=== PATIENT | female | born 1995 | race Caucasian/White ===

== ENCOUNTER → 2021-08-20 08:58 | Outpatient (BNVA) | payer MEDICAID, SELFPAY | PROVIDERS: PCP Nurse Practitioner | DX: R35.0 Frequency of micturition (principal) | CPT/HCPCS: 51798; 81002; 99202 ==

== ENCOUNTER → 2021-10-19 10:48 | Outpatient (BNVA) | payer MEDICAID, SELFPAY | PROVIDERS: PCP Nurse Practitioner; Visit Provider Urology | DX: N30.10 Interstitial cystitis (chronic) without hematuria (principal); R10.2 Pelvic and perineal pain; R35.1 Nocturia | CPT/HCPCS: 52000; 99212 ==

== ENCOUNTER → 2022-01-28 10:08 | Outpatient (BNVA) | payer MEDICAID, SELFPAY | PROVIDERS: PCP Nurse Practitioner; Visit Provider Urology | DX: N30.10 Interstitial cystitis (chronic) without hematuria (principal) | CPT/HCPCS: 99212 ==

== ENCOUNTER 2022-02-15 08:00 | Outpatient (RCR) | payer MEDICAID, SELFPAY ==
--- NOTE | 2021-11-18 09:46 | MHC.PT.EP ---
[facility] [place] Office [place] Office [place] Office [address] Jaswant Penny [address] [phone] F: [phone] F: [phone] F: [phone] F: [phone] Physical Therapy Plan of Care Date of Evaluation: Date of Surgery: Diagnosis: IC Assessment: 26 y/o referred to PFPT for interstitial cystitis without hematuria. She reports urinary frequency sx for several years that has worsened over the past 2 years. States she needs to urinate every 60-90 minutes during the day and every 60-75 minutes to urinate at night. At night, she will only have a few drops of urine but has a strong urge and pain. She will have leakage of urine throughout the day (small amounts) and worsens with working out. She also reports pain with pap smears and use of speculum and discomfort with sexual insertion. She feels limited in taking car rides, airplane travel, sleeping, and daily life (always has to find a bathroom). Examination shows decreased L hip strength and ROM, decreased lumbar extension, poor breathing mechanics, increased urinary urgency with abdominal fascial caudal shear, and poor load transfer tests to the L. Pelvic floor examination not performed due to time constraints today but pt consented to assessment next visit. Educated pt on IC, bladder irritants, toileting mechanics, breathing, vagal tone downregulation, urge deferment. Frequency and Duration: The patient will be seen 1x/week for 6 weeks Short Term Goals: 4 weeks Pt to be able to demonstrate diaphragmatic breathing to improve pressure exchange and intra abdominal load management. Pt to be educated on bladder irritants in order to decrease UI triggers Pt to complete a voiding log in order to accurately assess her bladder habits [facility] Goals: 8 weeks Pt will report 50% reduction in night time voiding Pt to reduce # of episodes of UI during the day by 50% to help improve quality of life and reduce underwear changes. Pt to be independent with her final HEP for PFM in order to help maintain gains made in therapy. Pt will reports 50% decrease in pain with insertion such as pap smears or sexual activity Treatment Plan: Modalities to reduce pain, spasms and effusion. Manual therapy to restore motion and function. Therapeutic exercise to improve strength and flexibility. Neuromuscular re-education for posture and balance. Therapeutic activities to return to functional activities of daily living. Electronically signed by: Please sign and return to therapist. Thank you for your referral.
--- NOTE | 2022-02-15 08:59 | MHC.PT.DC ---
[facility] [place] Office [place] Office [place] Office [address] Jaswant Penny [address] [phone] F: [phone] F: [phone] F: [phone] F: [phone] Physical Therapy Discharge Report Diagnosis: IC Date of Surgery: Date of Evaluation: 11/18/21 Date of Discharge: 02/15/22 Treatments to Date: 8 Cancellations to Date: 1 No Shows to Date: 0 Discharge Status: Independent with HEP Recommend MD Follow-up Discharge Summary: At this time, she continues with significant urgency especially at night but minimal-no stream occurs. She is now trialing Toviaz and Amitriptyline, which she states does not help and she hates taking the medications. Per urologist recommendation, she will be having bladder hydrodistention but it is not scheduled yet. She has also been referred to a behavioral therapist in conjuction with the mental therapist she already has. We reviewed HEP stretches with modification for cobra (standing back bend over counter), open books, piiformis stretch modified, happy baby stretch 1min, standing PF stretch. Also reviewed how to do self MFR and skin rolling to abdomen. Discussed looking into The IC Solution Book as well to read more about IC triggers and flare-up plans. At this time, she is d/c to I stretching HEP and she will be undergoing further management with urology for significant urgency. Electronically signed by: Coby Ho PT Please sign and return to therapist. Thank you for your referral.
== END 2022-02-15 09:00 | disposition home or self-care (01) ==
LOC: HO.PT 08:00
PROVIDERS: PCP Nurse Practitioner; Visit Provider Urology
DX: N30.10 Interstitial cystitis (chronic) without hematuria (principal)
CPT/HCPCS: 97110; 97112; 97140; 97162

== ENCOUNTER → 2022-02-25 09:43 | Outpatient (BNVA) | payer MEDICAID, SELFPAY | PROVIDERS: PCP Nurse Practitioner; Visit Provider Nurse Practitioner Family | DX: N30.10 Interstitial cystitis (chronic) without hematuria (principal) | CPT/HCPCS: 99212 ==

== ENCOUNTER 2022-03-21 11:10 | Day surgery (SDC) | payer MEDICAID, SELFPAY ==
[2022-03-16 12:30] VITALS: BMI 34.9
[2022-03-21 12:05] LABS: Urine Pregnancy NEGATIVE (NEGATIVE)
[2022-03-21 12:06] LABS: UPreg QC Valid YES
[2022-03-21 12:24] VITALS: BP 130/76; PULSE 75; RESP 18; TEMP 36.8; O2SAT 100
[2022-03-21 12:26] VITALS: BMI 35.2
[2022-03-21] MEDS: Lactated Ringers 1,000 ML 80 ML IVCONT (12:27)
[2022-03-21] MEDS: Acetaminophen 325 MG TABLET 650 MG PO (14:19)
--- NOTE | 2022-03-21 14:22 | P.CONAN_ITS ---
HPI - Anesthesia Eval Consult details Narrative: cysto, hydroditension PMFSH Active Problems Active Problems: All Active Problems (Updated 03/16/22 @ 12:29 by Marcela Schmidt RN) Interstitial cystitis (Acute) Past Medical History Medical History (Updated 03/16/22 @ 12:29 by Marcela Schmidt RN) Interstitial cystitis Patient : No Family History Family history of problems with anesthesia: No Surgical History Surgical History (Updated 03/16/22 @ 12:29 by Marcela Schmidt RN) History of tonsillectomy Hx of endoscopy History of Problems with Anesthesia: No Social History Social History Are you a primary care coordination manager to a significant other at home: No Do you presently have visiting nurse or other home services: No Patient Tobacco Use Status: Never used Tobacco Use of substances other than those prescribed or required for medical reasons: Yes Substance Use Frequency: Occasionally Have you been hit, kicked, punched, or otherwise hurt by someone within the past year? If so, by whom?: No Are you DNR?: No Advance Directives: No Advance Directives Information Provided: Yes Advance Directives on File: No Recently lost weight without trying: No Eating poorly because of decreased appetite: No Nutrition Risks: No Nutritional Risk Patient : No FDLMP: 02/10/22 : No Meds Allergies Allergy/AdvReac Type Severity Reaction Status Date / Time amoxicillin Allergy Rash Verified 03/16/22 12:29 Active Medications: Current Medications Lactated Ringer's (Lr) 1,000 mls @ 80 mls/hr IVCONT .[id number] [facility] Last Admin: 03/21/22 12:27 Dose: 80 mls/hr Home Medications Medication Instructions Recorded Confirmed Last Taken Type hydroxyzine HCl 25 mg tablet 25 mg PO BEDTIME 08/20/21 03/16/22 Unknown History valacyclovir 500 mg tablet 500 mg PO DAILY 08/20/21 03/16/22 Unknown History Exam Exam Date and Time: March 21, 2022 142 Height,Weight and Vital Signs: Height 5 ft 7 in Weight 102.058 kg Last Vital Signs Temp 98.2 F 03/21/22 12:24 Pulse 75 03/21/22 12:24 Resp 18 03/21/22 12:24 BP 130/76 03/21/22 12:24 Pulse Ox 100 03/21/22 12:24 O2 Del Method 03/21/22 12:24 Pertinent Lab Results Pertinent Lab Results: Laboratory Tests 03/21/22 11:42 Urine Test NEGATIVE Airway Mallampati Class: I TM Dist: >3cm Neck ROM: Full Loose/Missing/Broken Teeth: No Heart: ok Lungs: ok Assessment and Plan Assessment Anesthesia Assessment: Anesthesia Plan Discussed and Chart Reviewed Final Anesthetic Review Family History of Problems with Anesthesia: No History of Problems with Anesthesia: No NPO: Yes ASA Class: II Final Preanesthetic Review: No Changes in Pt Med Stat, Meds/Allgs Chart Reviewed, Consent Obtained/Reviewed and Anes Risks/Benef Reviewed Patient Risk: Low Procedure Risk: Low Anesthetic Plan Anesthetic Plan: GA and Agree w/ Assess. and Plan Disposition: Standard PACU
--- NOTE | 2022-03-21 14:33 | MHC.SHP ---
Pre-Procedural Eval Section A Date of Service: 03/21/22 The patient is an INPATIENT: No Changes since office visit: No Cold of Flu in the past 2 weeks, No New Medical Problems, No Changes in Medication and No Patient answered all questions The History & Physical has been completed within 30 days and I have reviewed it.: Yes Section B Chief Complaint: Interstitial cystitis (chronic) without hematuria Allergies: Allergies Allergy/AdvReac Type Severity Reaction Status Date / Time amoxicillin Allergy Rash Verified 03/16/22 12:29 Plan Diagnosis/Plan: Unchanged ( Cystoscopy, bladder biopsy, fulguration, hydrodistention) I have reviewed the history and physical and performed a pertinent physical examination on my patient. No changes have occurred unless specified. Time Spent With Patient Time: Total time managing care of this patient today ____ minutes.
--- NOTE | 2022-03-21 15:13 | W.PM.OPN ---
Operative Note Operative Note Date of Service: 03/21/22 Narrative: PreOperative Diagnosis: Interstitial cystitis with pelvic pain Post Operative Diagnosis: Interstitial cystitis with pelvic pain Procedure: Hydrodistention Surgeon: Dr Bienvenido Rodriguez Anesthesia: General Indications for procedure: interstitial cystitis symptoms failed conservative therapy Procedure: After informed consent was verified the patient was brought to the operating room and placed in a supine position. Anesthesia was administered per protocol. The patient was placed in a modified dorsal lithotomy position and prepped and draped in sterile fashion. Safety pause time-out was observed. Antibiotics being given. A 22 Burkinan cystoscope was used to empty the bladder. A mixture of bupivacaine lidocaine gel 20 cc was instilled into the bladder and allowed to sit for 2-3 minutes. Hydrodistention of the bladder was performed. The bladder was filled and allowed to sit for 2 minutes. Filling was from a height of 1 m. On the 1st fill there was 650 cc within the bladder. striations from submucosal collagenase deposition were clearly visible.Cystoscopy revealed glomerulations consistent with interstitial cystitis. Bladder biopsies were performed and fulguration used for control. Second filling of the bladder was performed in similar fashion. Volume was approximately 1100 cc. Terminal hematuria noted. The the bladder was emptied. A mixture of bupivacaine lidocaine gel 20 cc was instilled into the bladder and allowed to sit for 2-3 minutes The patient tolerated procedure well was extubated in operating room transferred in stable condition to the recovery area. Appropriate postprocedure pain medication was provided. Pathology: Bladder biopsies Drains: None
[2022-03-21 15:22] VITALS: BP 127/73; PULSE 80; RESP 18; TEMP 36.8; O2SAT 98
[2022-03-21 15:27] VITALS: BP 129/73; PULSE 72; RESP 18; O2SAT 98
[2022-03-21] MEDS: Phenazopyridine HCL 100 MG TABLET PO (15:27)
[2022-03-21 15:32] VITALS: BP 125/68; PULSE 71; RESP 18; O2SAT 98
[2022-03-21 15:37] VITALS: BP 113/57; PULSE 67; RESP 18; TEMP 36.6; O2SAT 99
[2022-03-21 15:52] VITALS: BP 105/66; PULSE 69; RESP 18; O2SAT 99
== END 2022-03-21 16:02 | disposition home or self-care (01) ==
PROVIDERS: Anesthesiology; PCP Nurse Practitioner; Visit Provider Urology
PROC: 0T7B7ZZ Dilation of Bladder, Via Natural or Artificial Opening (ICD-10-PCS; CPT 52260; principal; 2022-03-21 13:10)
DX: N30.10 Interstitial cystitis (chronic) without hematuria (principal); R10.2 Pelvic and perineal pain; R35.1 Nocturia; Z79.899 Other long term (current) drug therapy; Z88.0 Allergy status to penicillin
CPT/HCPCS: 52260; 52204; 81025; 88305; J1885; J1956; J2405; J3010

== ENCOUNTER → 2022-04-06 13:28 | Outpatient (BNVA) | payer MEDICAID, SELFPAY | PROVIDERS: PCP Nurse Practitioner; Visit Provider Nurse Practitioner Family | DX: Z48.816 Encounter for surgical aftercare following surgery on the genitourinary system (principal); N30.10 Interstitial cystitis (chronic) without hematuria | CPT/HCPCS: 99212 ==

== ENCOUNTER → 2022-06-15 09:06 | Outpatient (BNVA) | payer OTHER, SELFPAY | PROVIDERS: PCP Nurse Practitioner; Visit Provider Urology | DX: N30.10 Interstitial cystitis (chronic) without hematuria (principal) | CPT/HCPCS: 52000; 52287; J0585 ==

== ENCOUNTER → 2022-06-30 08:54 | Outpatient (BNVA) | payer OTHER, SELFPAY | PROVIDERS: PCP Nurse Practitioner; Visit Provider Urology | DX: N30.10 Interstitial cystitis (chronic) without hematuria (principal) | CPT/HCPCS: 51798 ==

== ENCOUNTER 2022-09-23 08:47 | Outpatient (AMB) | payer BC, SELFPAY ==
--- NOTE | 2022-09-23 08:55 | MHC.OFFVIS ---
Intake Intake Visit Reasons: 3 month/ PVR Intake Note: Patient is present for follow up interstitial cystitis Urology Medication: botox treatment Blood Thinner: none Corrugator Required: No Accompanied by: Self / Same As Patient Allergies amoxicillin Allergy (Verified 09/23/22 21:45) Rash Medication List - Last Reconciled 09/23/22 by GEE Morris gabapentin 300 mg PO TID tadalafil (Cialis) 5 mg PO DAILY 90 days valacyclovir 4,000 mg PO ONCE HPI HPI Comments History of Present Illness Details Venita is a pleasant 27-year-old female patient of Dr. Brandt. She presents to the office today for follow-up of her interstitial cystitis. In discussion with the patient today she reports feeling very frustrated in her lower urinary tract symptoms. She discusses feeling as if the symptoms have regressed. She reports nocturia up to 12 times per night, bladder pressure, urinary frequency, and urinary urgency. Of note, patient underwent in office cystoscopy with bladder Botox approximately 3 months ago with minimal improvement. She otherwise denies incontinence, hematuria, dysuria, foul smelling urine, changes to urinary stream, flank pain, fever, and or chills. In office urinalysis results reviewed with the patient today. Discussed at length trial of InterStim. Discussed risks and benefits. She otherwise offers no other issues or concerns at this time. Interstitial cystitis Ongoing since 22 years old Primary symptoms constant bladder pressure with urge No impact on stream Cystoscopy 10/28 small volume with feeling of pressure - hydrodistention - histologic features consistent with interstitial cystitis Prior treatments - pelvic floor physical therapy, oxybutynin and fesoterdine, and low dose antibiotics with minimal effect, bladder botox 06/28 with minimal improvement. Gabapentin, Amitriptyline, and hydroxyzine. [facility] Medical History Interstitial cystitis Surgical History History of tonsillectomy Hx of endoscopy Social History Are you a primary pet care associate to a significant other at home: No Do you presently have visiting nurse or other home services: No Patient Tobacco Use Status: Never used Tobacco Review of Systems Const All systems reviewed & are unremarkable except as noted in HPI and below Reports as per HPI Eyes Reports no additional complaints ENT Reports no additional complaints Card Reports no additional complaints Resp Reports no additional complaints GI Reports no additional complaints Reports as per HPI Musc Reports no additional complaints Neuro Reports no additional complaints Psych Details: patient reports seeing a sleep psychotherapist to be able to help her with her insomnia Endo Reports no additional complaints Physical Exam Const General: cooperative, healthy appearing, comfortable, no acute distress, well developed, alert and awake Orientation/consciousness: oriented to person and patient oriented x3 HEENT Head: Yes normal to inspection, Yes normocephalic and Yes atraumatic Eyes General: appearance normal, both eyes and all related structures Neck Neck: Yes normal visual inspection and Yes trachea midline Resp Effort & Inspection: normal respiratory effort and able to speak in complete sentences Cardio Rate: regular rate GI Inspection: Yes normal to inspection General: Yes no CVA tenderness Back/Spine/Pelvis Back: no CVA tenderness Skin General skin exam: no rashes or lesions noted Neuro General: oriented to person and patient oriented x3 Extrem General: Yes normal to inspection Psych Appearance: grossly normal and well kempt Mental Status: mental status grossly normal Speech and movement: Normal speech and movement present Affect: normal affect Attitude: cooperative Thought process: Normal thought process present Thought content: Normal thought content present Insight: Good insight present (Psych) Judgement: Good judgement present (Psych) Office Procedures Post Void Residual Post Residual Void Post Void Residual (PVR): 0 63360-Hycm Void Residual by ultrasound Results AMB Urinalysis, Automated UA Leukoctes 0 Neo/uL Last Edit by [employer] Kyung on 09/23/22 09:17 UA Nitrite Last Edit by [employer] Tracey on 09/23/22 09:17 UA Urobilinogen 0.2 mg/dL Last Edit by [employer] Kyung on 09/23/22 09:17 UA Protein 0 mg/dL Last Edit by [employer] Kyung on 09/23/22 09:17 UA pH 6.0 Last Edit by [employer] Tracey on 09/23/22 09:17 UA Blood 0 Lan/uL Last Edit by [employer] Tracey on 09/23/22 09:17 UA Specific Mcnary 1.025 Last Edit by [employer] Kyung on 09/23/22 09:17 UA Ketone Negative Last Edit by Erik Tracey on 09/23/22 09:17 UA Bilirubin 0 mg/dL Last Edit by Erik Tracey on 09/23/22 09:17 UA Glucose 0 mg/dL Last Edit by Erik Tracey on 09/23/22 09:17 Results Reviewed Results Reviewed: Laboratory Last Values Urine pH (Auto) 6.0 09/23/22 09:05 Specific Mcnary (Auto) 1.025 09/23/22 09:05 Urine Protein (Auto) 0 mg/dL 09/23/22 09:05 Glucose (UA)(Auto) 0 mg/dL 09/23/22 09:05 Urine Ketones (Auto) Negative 09/23/22 09:05 Urine Blood (Auto) 0 Lan/uL 09/23/22 09:05 Urine Bilirubin (Auto) 0 mg/dL 09/23/22 09:05 Urine Urobilinogen (Auto) 0.2 mg/dL 09/23/22 09:05 Leukocyte Esterase (Auto) 0 Neo/uL 09/23/22 09:05 Assessment & Plan Assessment & Plan (1) Interstitial cystitis: Code(s): N30.10 - Interstitial cystitis (chronic) without hematuria Plan: Risks, benefits and alternatives to therapy were discussed. These include but are not limited to infection, bleeding, damage to local organs and tissues, need for further interventions. ? Anesthetic risks regarding cardiac arrhythmia, blood clots, and potential mortality were discussed. The patient understands the typical recovery time and the outpatient nature of the procedure. After consideration of these risks the patient gives full informed consent and they wish to move ahead with the procedure. Plan In office urinalysis results reviewed with the patient today. Discussed rescue solutions for current treatment given patients symptoms; however patient declines at this time Discussed bladder triggers/irritants. Discussed, educated, encouraged on the importance of drinking plenty of water daily. Patient with multiple failed therapies including medications, hydrodistention, and bladder Botox. Discussed at length trial of InterStim; discussed risks versus benefits Educational pamphlet/information provided on InterStim All questions were answered. Start Cialis 5 mg daily as discussed and prescribed. Schedule for InterStim phase [address] Rodriguez as discussed Orders: Orders AMB Urinalysis Automated Today Z13.9 - Encounter for screening, unspecified AMB Post Void Residual by ultrasound Today N30.10 - Interstitial cystitis (chronic) without hematuria Medications: New tadalafil (Cialis) [id number] [facility] [id number] Member [id number] 5 mg PO DAILY 90 tabs 1RF 90 days Patient Instructions: The patient had an opportunity to ask questions regarding the treatment plan. All questions were answered. Physical exam, labs, and imaging were discussed and reviewed in detail. As well as risks, benefits, and discussion of treatment choices. No major barriers to understanding were identified. The patient expressed understanding and agreement with the above treatment plan. The patient was made aware they should contact our office by phone for worsening of their current condition, the appearance of new symptoms, or with any questions or concerns. Compliance is encouraged with any medications and follow up testing that is ordered. It is a privilege to be allowed the opportunity to participate in? your urological care.? Again, if you have any questions or concerns If you have any questions or concerns please do not hesitate to contact me. The office is [phone]. This note is constructed using voice recognition software. While every effort has been made to ensure accuracy seat cover installer errors may have been included. Yours sincerely, GEE Morris Coding Level of Care Code Est Pt Level 4 (43771) Diagnoses Interstitial cystitis N30.10 CPT Codes Post Residual Void - PVR CPT Code: 43777-Uqus Void Residual by ultrasound ([id number])
== END 2022-09-23 09:55 | disposition home or self-care (01) ==
LOC: HO.HUSH 08:47
PROVIDERS: PCP Nurse Practitioner; Visit Provider Nurse Practitioner Family
DX: N30.10 Interstitial cystitis (chronic) without hematuria (principal)
CPT/HCPCS: 99214

== ENCOUNTER → 2022-09-23 08:47 | Outpatient (BNVA) | payer BC, SELFPAY | PROVIDERS: PCP Nurse Practitioner; Visit Provider Nurse Practitioner Family | DX: N30.10 Interstitial cystitis (chronic) without hematuria (principal) | CPT/HCPCS: 51798; 81003 ==

== ENCOUNTER 2022-12-12 09:51 | Day surgery (SDC) | payer BC, SELFPAY ==
[2022-12-07 19:32] VITALS: BMI 36.0
--- NOTE | 2022-12-09 09:20 | HO.ANESPROP2 ---
Documented by User: Sariah Salinas NP 12/09/22 09:20 HPI - Anesthesia Eval Consult details Narrative: 27yo F for Interstim Lead Test-Stage 1 [facility] Active Problems Active Problems: All Active Problems (Updated 03/16/22 @ 12:29 by Marcela Schmidt, RN) Hx of cystoscopy (Acute) Interstitial cystitis (Acute) Past Medical History Medical History Interstitial cystitis Family History Family history of problems with anesthesia: No Surgical History Surgical History History of tonsillectomy Hx of endoscopy History of Problems with Anesthesia: No Social History Social History Are you a primary tree care foreman to a significant other at home: No Do you presently have visiting nurse or other home services: No Patient Tobacco Use Status: Never used Tobacco Use of substances other than those prescribed or required for medical reasons: No Have you been hit, kicked, punched, or otherwise hurt by someone within the past year? If so, by whom?: No Are you DNR?: No Advance Directives: No Advance Directives Information Provided: Yes Advance Directives on File: No Meds Allergies Allergy/AdvReac Type Severity Reaction Status Date / Time amoxicillin Allergy Rash Verified 12/12/22 10:29 Home Medications Medication Instructions Recorded Confirmed Last Taken Type sumatriptan succinate 50 mg tablet 50 mg PO NEEDED 12/12/22 12/12/22 11/11/22 History Exam Exam Date and Time: December 09, 2022 0920 Height,Weight and Vital Signs: Height 5 ft 7 in Weight 104.326 kg Assessment and Plan Assessment Anesthesia Assessment: Chart Reviewed Final Anesthetic Review Family History of Problems with Anesthesia: No History of Problems with Anesthesia: No Documented by User: Demian Hanson MD 12/12/22 13:47 [facility] Past Medical History Medical History Interstitial cystitis Patient : No Surgical History Surgical History History of tonsillectomy Hx of endoscopy Social History Social History Are you a primary tree care foreman to a significant other at home: No Do you presently have visiting nurse or other home services: No Patient Tobacco Use Status: Never used Tobacco Use of substances other than those prescribed or required for medical reasons: No Have you been hit, kicked, punched, or otherwise hurt by someone within the past year? If so, by whom?: No Are you DNR?: No Advance Directives: No Advance Directives Information Provided: Yes Advance Directives on File: No Meds Allergies Allergy/AdvReac Type Severity Reaction Status Date / Time amoxicillin Allergy Rash Verified 12/12/22 10:29 Home Medications Medication Instructions Recorded Confirmed Last Taken Type sumatriptan succinate 50 mg tablet 50 mg PO NEEDED 12/12/22 12/12/22 11/11/22 History Exam Airway Mallampati Class: II TM Dist: <=3cm Neck ROM: Full Loose/Missing/Broken Teeth: No Heart: ok Lungs: ok Assessment and Plan Assessment Anesthesia Assessment: Anesthesia Plan Discussed Final Anesthetic Review NPO: Yes ASA Class: III Final Preanesthetic Review: No Changes in Pt Med Stat, Meds/Allgs Chart Reviewed, Consent Obtained/Reviewed and Anes Risks/Benef Reviewed Patient Risk: Intermediate Procedure Risk: Intermediate Anesthetic Plan Anesthetic Plan: GA and Agree w/ Assess. and Plan Disposition: Standard PACU
[2022-12-12] VITALS (9 sets, daily range): BP systolic 101–121; BP diastolic 43–74; PULSE 58–72; RESP 16–20; TEMP 36.1–36.2; O2SAT 98–100; BMI 37.6
--- NOTE | ~2022-12-12 | FL_ITS ---
EXAMINATION: XR FLUOROSCOPY WITH IMAGES CLINICAL INFORMATION: InterStim lead test. COMPARISON: None available. TECHNIQUE: Fluoroscopy Supervised By: Dr. Bienvenido Rodriguez. Fluoroscopy Time: 33.9 seconds. Cumulative Dose: 31.83 mGy. DAP: Gycm2. Images: 21. FINDINGS: Images demonstrate needles and leads projecting over the sacrum FL/FL guidance in OR IMPRESSION: Fluoroscopy guidance for InterStim lead test
[2022-12-12 10:29] LABS: UPreg QC Valid YES; Urine Pregnancy NEGATIVE (NEGATIVE)
[2022-12-12] MEDS: Lactated Ringers 1,000 ML 100 ML IVCONT (10:43)
--- NOTE | 2022-12-12 12:08 | MHC.SHP ---
Pre-Procedural Eval Section A Date of Service: 12/12/22 The patient is an INPATIENT: No Changes since office visit: No Cold of Flu in the past 2 weeks, No New Medical Problems, No Changes in Medication and No Patient answered all questions The History & Physical has been completed within 30 days and I have reviewed it.: Yes Section B Chief Complaint: Interstitial cystitis (chronic) without hematuria Allergies: Allergies Allergy/AdvReac Type Severity Reaction Status Date / Time amoxicillin Allergy Rash Verified 12/12/22 10:29 Plan I have reviewed the history and physical and performed a pertinent physical examination on my patient. No changes have occurred unless specified. Time Spent With Patient Time: Total time managing care of this patient today ____ minutes.
--- NOTE | 2022-12-12 14:11 | W.PM.OPN ---
Operative Note Operative Note Date of Service: 12/12/22 Narrative: PreOperative Diagnosis: Interstitial cystitis with urinary urgency and frequency Post Operative Diagnosis: interstitial cystitis with urinary urgency and frequency Procedure: 1.) Placement of InterStim lead trial Surgeon: Dr Bienvenido Rodriguez Anesthesia: sedation Indications for procedure: Interstitial cystitis, failed all oral medications, prior hydrodistention. Procedure: After informed consent was verified the patient was brought to the operating room. Sedation anesthesia was administered per protocol. The patient was placed in a prone position and prepped and draped in a sterile fashion. Safety pause time-out was performed. Using the C-arm and Finder needle the S3 foramen exiting from the pelvic arch was marked horizontally from left to right as our horizontal marker. The medial aspect of foramen were highlighted and aligned with the finder needle in a vertical fashion. The intersection of these 2 lines marked the entry point on the skin of the medial aspect of the right S3 foramen. Local anesthetic was infiltrated along the vertical aspect. The finding needle was inserted into the targeted foramen. The supervisor electric motor testing was attached and assessed for placement with Ashish response and toe movement. The initial response was predominantly Ashish with minimal toe. A 2nd finder needle was placed minimal caudad position and testing indicated a combination response. The internal introducer from the needle was removed and the control lead placed. The finder needle was removed and the dilator sheath introduced. Under fluoroscopic guidance the dilator sheath was advanced till the marker was seen mid point through the sacral bone on the lateral image. The internal cannula from the dilator was removed. The guidewire was removed. The active lead was then introduced through the dilator sheath and advanced so that the 3rd and 4th marked electrodes crossed the internal boundary line of the sacrum. The testing electrode was then hooked up to each of the wire electrodes 0 through 3 and good Ashish and toe response is was seen at low amplitude below 1.0 amps. This confirmed the clinically relevant position of the live wire. Under live fluoroscopy the introducer sheath was removed deploying the tines of the wire ensuring that the live wire remained in the previously described position. The tunneling device was then used to bridge the distance between the sacral vertical incision and the desired location of the battery pocket. The live wire was placed through the tunneling device and brought out into the battery pocket. The sharp tunneling device tip was then exchanged for a blunt-tip and the tunneling device lead from our target battery pocket superiorly to in outlet point. The supervisor electric motor testing was then placed in the retrieval device and brought back to out target battery pocket. The live lead was then attached to supervisor electric motor testing. A loop of supervisor electric motor testing was then created and using a Vicryl suture attached to the connector in order to allow easier location for final placement of battery and to minimize tension. Interrupted 3-0 Vicryl sutures were used to close the defect spaces and bring skin edges together. Running 4-0 Monocryl sutures were used to appose skin edges. Incisions were dressed using skin glue. The supervisor electric motor testing was attached using a drain suture. Patient tolerated procedure well was extubated in operating room transferred in stable condition to the recovery area. CPT full device placement [id number]
[2022-12-12] MEDS: Acetaminophen 325 MG TABLET 650 MG PO (14:35)
[2022-12-12] MEDS: oxyCODONE HCl Immed Release 5 MG TABLET 10 MG PO (14:35)
[2022-12-12] MEDS: fentaNYL citrate/PF 100 MCG/2 ML VIAL 50 MCG IVPUSH (14:48)
== END 2022-12-12 16:04 | disposition home or self-care (01) ==
PROVIDERS: Nurse Practitioner; PCP Nurse Practitioner; Visit Provider Urology
PROC: (CPT 64561; principal; 2022-12-12 11:40)
DX: N30.10 Interstitial cystitis (chronic) without hematuria (principal); R39.15 Urgency of urination; R35.0 Frequency of micturition; R35.1 Nocturia; Z79.899 Other long term (current) drug therapy; Z88.0 Allergy status to penicillin
CPT/HCPCS: 64561; 81025; C1778; C1883; J0690; J2795; J3010

== ENCOUNTER → 2022-12-12 09:51 | Outpatient (BNV) | payer BC, SELFPAY | PROVIDERS: PCP Nurse Practitioner; Visit Provider Urology | DX: N30.10 Interstitial cystitis (chronic) without hematuria (principal) | CPT/HCPCS: 64561 ==

== ENCOUNTER 2022-12-26 10:43 | Day surgery (SDC) | payer BC, SELFPAY ==
[2022-12-21 19:31] VITALS: BMI 37.6
--- NOTE | 2022-12-23 10:49 | HO.ANESPROP2 ---
Documented by User: Sariah Salinas NP 12/23/22 10:50 HPI - Anesthesia Eval Consult details Narrative: 27yo F for Interstim Lead Test-Stage 2 s/p Stage 1 12/12/22 with GA-LMA 4 PMFSH Active Problems Active Problems: All Active Problems (Updated 12/21/22 @ 19:37 by Antonia Garcia RN) Hx of cystoscopy (Acute) Interstitial cystitis (Acute) Past Medical History Medical History History of MRSA infection Migraine headache Interstitial cystitis Family History Family history of problems with anesthesia: No Surgical History Surgical History History of urologic surgery History of cystoscopy History of tonsillectomy Hx of endoscopy History of Problems with Anesthesia: No Social History Social History Are you a primary farm or ranch animal caretaker to a significant other at home: No Do you presently have visiting nurse or other home services: No Patient Tobacco Use Status: Never used Tobacco Use of substances other than those prescribed or required for medical reasons: No Are you DNR?: No Advance Directives: No Advance Directives Information Provided: Yes Advance Directives on File: No Recently lost weight without trying: No Nutrition Risks: No Nutritional Risk Patient : No Meds Allergies Allergy/AdvReac Type Severity Reaction Status Date / Time amoxicillin Allergy Rash Verified 12/26/22 11:00 Home Medications Medication Instructions Recorded Confirmed Last Taken Type sumatriptan succinate 50 mg tablet 50 mg PO NEEDED headache 12/12/22 12/21/22 11/11/22 History gabapentin 300 mg capsule 300 mg PO BEDTIME PRN Insomnia 12/21/22 12/21/22 Unknown History Exam Height,Weight and Vital Signs: Height 5 ft 7 in Weight 108.862 kg Assessment and Plan Assessment Anesthesia Assessment: Chart Reviewed Final Anesthetic Review Family History of Problems with Anesthesia: No History of Problems with Anesthesia: No Documented by User: Hanane Ramirez MD 12/26/22 13:57 PMFSH Past Medical History Medical History History of MRSA infection Migraine headache Interstitial cystitis Surgical History Surgical History History of urologic surgery History of cystoscopy History of tonsillectomy Hx of endoscopy Social History Social History Are you a primary farm or ranch animal caretaker to a significant other at home: No Do you presently have visiting nurse or other home services: No Patient Tobacco Use Status: Never used Tobacco Use of substances other than those prescribed or required for medical reasons: No Are you DNR?: No Advance Directives: No Advance Directives Information Provided: Yes Advance Directives on File: No Recently lost weight without trying: No Nutrition Risks: No Nutritional Risk Patient : No Meds Allergies Allergy/AdvReac Type Severity Reaction Status Date / Time amoxicillin Allergy Rash Verified 12/26/22 11:00 Home Medications Medication Instructions Recorded Confirmed Last Taken Type sumatriptan succinate 50 mg tablet 50 mg PO NEEDED headache 12/12/22 12/21/22 11/11/22 History gabapentin 300 mg capsule 300 mg PO BEDTIME PRN Insomnia 12/21/22 12/21/22 Unknown History Exam Airway Mallampati Class: II TM Dist: >3cm Neck ROM: Full Heart: rrr Lungs: cta Assessment and Plan Assessment Anesthesia Assessment: Anesthesia Plan Discussed Final Anesthetic Review NPO: Yes ASA Class: II Final Preanesthetic Review: No Changes in Pt Med Stat, Meds/Allgs Chart Reviewed and Consent Obtained/Reviewed Patient Risk: Intermediate Procedure Risk: Intermediate Anesthetic Plan Anesthetic Plan: MAC: Disposition: Standard PACU
[2022-12-26 11:07] LABS: UPreg QC Valid YES; Urine Pregnancy NEGATIVE (NEGATIVE)
[2022-12-26 11:20] VITALS: BMI 46.1
[2022-12-26] MEDS: Lactated Ringers 1,000 ML 100 ML IVCONT (11:26)
[2022-12-26 11:31] VITALS: BP 121/79; PULSE 76; RESP 18; TEMP 36.6; O2SAT 98
--- NOTE | 2022-12-26 13:55 | MHC.SHP ---
Pre-Procedural Eval Section A Date of Service: 12/26/22 The patient is an INPATIENT: No Changes since office visit: No Cold of Flu in the past 2 weeks, No New Medical Problems, No Changes in Medication and No Patient answered all questions The History & Physical has been completed within 30 days and I have reviewed it.: No Section B Chief Complaint: Interstitial cystitis (chronic) without hematuria Details of Present Illness: part 2 interstim Relevant Social History: None Present Medications: see Short Stay Collaborative assessment Medical History: No relevant PMH History of Previous Operations: Relevant previous surgery/procedure and date(s) Allergies: Allergies Allergy/AdvReac Type Severity Reaction Status Date / Time amoxicillin Allergy Rash Verified 12/26/22 11:00 Review of Systems Sugical H&P ROS: Negative: Constitution, Cardiovascular, Respiratory, Neurological, Psychiatric, Hem-Onc, Allergic/Immunologic, Gastrointestinal, Genitourinary, Musculoskeletal, Integumentary, Endocrine and Eyes/Ears/Nose/Throat Exam Surgical H&P Exam: Normal: HEENT, Normal: Heart, Normal: Lungs, Normal: Extremities, Normal: Abdomen, Normal: Skin and Normal: Neurological Plan Diagnosis/Plan: Unchanged (part 2 interstim) I have reviewed the history and physical and performed a pertinent physical examination on my patient. No changes have occurred unless specified. Time Spent With Patient Time: Total time managing care of this patient today ____ minutes.
--- NOTE | 2022-12-26 14:58 | W.PM.OPN ---
Operative Note Operative Note Date of Service: 12/26/22 Narrative: PreOperative Diagnosis:?? [Overactive bladder with urinary urgency and frequency][Underactive Bladder] Post Operative Diagnosis:? [Overactive bladder with urinary urgency and frequency][Underactive Bladder] Procedure: 1) Placement of InterStim generator 2) Generator Programming Surgeon: Dr Bienvenido Rodriguez Anesthesia:? sedation Indications for procedure: Trial lead had been placed. Here for generator placement Procedure: After informed consent was verified the patient was brought to the operating room.? Sedation anesthesia was administered per protocol. The patient was placed in a prone position and prepped and draped in a sterile fashion.? Safety pause time-out was performed. Temporary lead was divided Local anesthetic was infiltrated around the initial battery pocket incision on the right lateral superior buttock.? Incision was made and taken down through the skin untill the wire connector was encountered. This was removed from the pocket. The temporary lead was removed from the connector. The pocket was expanded using sharp and blunt dissection to accommodate the generator. The generator was connected and placed in the pocket after the pocket was irrigated. Testing and programming was performed to confirm generator activity and lead impedance. Incision was closed with running 3-0 Vicryl sutures Skin was closed with running 4-0 Monocryl and dressing applied. CPT? generator placement? 76843, [id number]
[2022-12-26 15:05] VITALS: BP 136/74; PULSE 65; RESP 16; TEMP 36.4; O2SAT 99
[2022-12-26 15:20] VITALS: BP 130/73; PULSE 61; RESP 16; O2SAT 99
[2022-12-26] MEDS: Acetaminophen 325 MG TABLET 975 MG PO (15:21)
[2022-12-26 15:35] VITALS: BP 103/67; PULSE 61; RESP 16; TEMP 36.8; O2SAT 0
== END 2022-12-26 16:04 | disposition home or self-care (01) ==
PROVIDERS: Nurse Practitioner; PCP Nurse Practitioner; Visit Provider Urology
PROC: (CPT 64590; principal; 2022-12-26 12:40)
DX: N30.10 Interstitial cystitis (chronic) without hematuria (principal); Z86.14 Personal history of Methicillin resistant Staphylococcus aureus infection
CPT/HCPCS: 64590; 95972; 81025; C1767; C1787; J0690; J2250; J2704; J2795; J3010

== ENCOUNTER → 2022-12-26 10:43 | Outpatient (BNV) | payer BC, SELFPAY | PROVIDERS: PCP Nurse Practitioner; Visit Provider Urology | DX: N32.81 Overactive bladder (principal); R39.15 Urgency of urination; R35.0 Frequency of micturition | CPT/HCPCS: 64590; 76000; 95972 ==

== ENCOUNTER 2023-01-18 14:56 | Outpatient (AMB) | payer BC, SELFPAY ==
--- NOTE | 2023-01-18 15:05 | MHC.OFFVIS ---
Intake Intake Visit Reasons: 2 week (interstim) Intake Note: Patient is Present for Follow Up Interstim Urology Medication: None Antibiotic Allergies:Amoxicillin Blood Thinners:None Patient states that she has some concerns with the site where Interstim was inserted in. States she feels a weird pulling/Nerve sensation that causes some discomfort. She states that even though she feels some improvement it is not where she expected. She is willing to discuss other options if any. She states that Dr Rodriguez in past has recommended Bladder Instillations but at the time she did not want to. Also she mentioned that Dr Rodriguez recommended to try overactive medication after procedure. Allergies amoxicillin Allergy (Verified 01/18/23 15:20) Rash HPI HPI Comments History of Present Illness Details Venita is a pleasant female. She is a patient of Dr. Brandt. She is seen for the following urologic conditions - interstitial cystitis Postop from InterStim placement Nocturia down to 3 times per night She is very happy that she is now getting 4 hours of sleep Does have some mild urgency and frequency during the day Had concerns about the incision site but I reassured her this was a normal healing process We discussed dietary triggers Review in 3 months. May need to have pharmaceutical therapy reintroduced. If so would start with beta agonist Interstitial cystitis Ongoing since 22 years old Primary symptoms constant bladder pressure with urge No impact on stream Cystoscopy 10/28 small volume with feeling of pressure - hydrodistention - histologic features consistent with interstitial cystitis Prior treatments - pelvic floor physical therapy, oxybutynin and fesoterdine, and low dose antibiotics with minimal effect, bladder botox 06/28 with minimal improvement. Gabapentin, Amitriptyline, and hydroxyzine. [facility] Medical History History of MRSA infection Migraine headache Interstitial cystitis Surgical History History of urologic surgery History of cystoscopy History of tonsillectomy Hx of endoscopy Social History Are you a primary resident care manager rn to a significant other at home: No Do you presently have visiting nurse or other home services: No Patient Tobacco Use Status: Never used Tobacco Review of Systems Const Denies chills and Denies fever(s) Card Reports no additional complaints and Denies syncope Resp Denies cough GI Denies abdominal pain and Denies heartburn Reports as per HPI and Denies change in libido Neuro Denies syncope Psych Denies change in libido Endo Denies change in libido Physical Exam Const General: cooperative, healthy appearing, comfortable and no acute distress Orientation/consciousness: patient oriented x3 HEENT Face and sinus: Yes normal facial exam Mouth: moist mucous membranes Neck Neck: Yes normal visual inspection, Yes full ROM and Yes trachea midline Chest Chest palpation & inspection: normal inspection of the chest Resp Effort & Inspection: normal respiratory effort, able to speak in complete sentences and no respiratory distress GI Inspection: Yes normal to inspection Back/Spine/Pelvis Cervical Spine: normal cervical lordosis Thoracic/Lumbar Spine: thoracic and lumbar spine normal to inspection Skin General skin exam: no rashes or lesions noted Neuro General: patient oriented x3, gait normal, tone normal and moves all extremities Extrem General: Yes normal to inspection and Yes capillary refill normal Assessment & Plan Assessment & Plan (1) Interstitial cystitis: Code(s): N30.10 - Interstitial cystitis (chronic) without hematuria Plan Three month follow-up Patient Instructions: Imaging studies, laboratory and physical exam results were discussed and reviewed in detail. No major barriers to patient understanding were identified. An opportunity to ask questions regarding the treatment plan was provided. All questions were answered. The patient expressed understanding and agreement with the above treatment plan. The patient is aware they should contact our office by phone for worsening of their current condition or the appearance of new urologic symptoms. Compliance is encouraged with any medications and followup testing that is ordered. It is a privilege to participate in the urologic care of your patient. If you have any questions or concerns regarding treatment for the above conditions, or other urologic issues, please do not hesitate to contact me. The office telephone contact is [phone]. This note is constructed using voice recognition software. While every effort has been made to ensure accuracy procurement forester errors may have been included. Yours sincerely, Dr Bienvenido Rodriguez MD, [facility] - Urology Providers of Expert, Compassionate Care for the Genitourinary System Coding Level of Care Code Est Pt Level 3 (15263) Diagnoses Interstitial cystitis N30.10
== END 2023-01-18 15:32 | disposition home or self-care (01) ==
PROVIDERS: PCP Nurse Practitioner; Visit Provider Urology
DX: N30.10 Interstitial cystitis (chronic) without hematuria (principal)
CPT/HCPCS: 99213

== ENCOUNTER → 2023-01-18 14:56 | Outpatient (BNVA) | payer BC, SELFPAY | PROVIDERS: PCP Nurse Practitioner; Visit Provider Urology ==

== ENCOUNTER 2023-04-20 08:46 | Outpatient (AMB) | payer MEDICARE, SELFPAY ==
--- NOTE | 2023-04-20 08:51 | A.OFFVIS_ITS ---
Intake Intake Visit Reasons: 3m follow up Intake Note: Patient is Present for Follow Up Interstim Urology Medication: None Antibiotic Allergies:Amoxicillin Blood Thinners:None Jig Builder Helper Required: No Accompanied by: Self / Same As Patient Allergies amoxicillin Allergy (Verified 04/20/23 21:56) Rash Medication List - Last Reconciled 04/20/23 by GEE Morris gabapentin 300 mg PO BEDTIME PRN sumatriptan succinate 50 mg PO NEEDED HPI HPI Comments History of Present Illness Details Venita is a pleasant 28 year old female patient of Dr. Brandt. She has a past medical history of migraines and interstitial cystitis. She presents to the office today for follow-up. Of note, patient has underwent InterStim placement with Dr. Rodriguez on 12/26/22. In discussion with the patient today she reports significant improvement in lower urinary tract symptoms she had been experiencing. She reports nocturia has decreased to approximately 2 times per night whereas prior to InterStim placement she had been urinating anywhere between 5-12 times per night. She discusses having followed up with [facility] however continues on the same setting since surgical procedure. She continues to avoid bladder triggers/irritants. Surgical site appears very well healed. She does report having intermittent episodes of urinary urgency and frequency however does not find this bothersome. She reports these episodes are very infrequent. She reports having recently had a massage and had massage therapist avoid the area in which her InterStim is placed. In office urinalysis results reviewed with the patient today. She otherwise denies incontinence, nocturia, hematuria, dysuria, foul smelling urine, changes to urinary stream, flank pain, fever, and or chills. She is happy with her current voiding parameters. Interstitial cystitis Ongoing since 22 years old Primary symptoms constant bladder pressure with urge No impact on stream Cystoscopy 10/28 small volume with feeling of pressure - hydrodistention - histologic features consistent with interstitial cystitis Prior treatments - pelvic floor physical therapy, oxybutynin and fesoterdine, and low dose antibiotics with minimal effect, bladder botox 06/28 with minimal improvement. Gabapentin, Amitriptyline, and hydroxyzine. [facility] Medical History History of MRSA infection Migraine headache Interstitial cystitis Surgical History History of urologic surgery History of cystoscopy History of tonsillectomy Hx of endoscopy Social History Are you a primary healthcare network pricing consultant to a significant other at home: No Do you presently have visiting nurse or other home services: No Patient Tobacco Use Status: Never used Tobacco Review of Systems Const All systems reviewed & are unremarkable except as noted in HPI and below Reports as per HPI Eyes Reports no additional complaints ENT Reports no additional complaints Card Reports no additional complaints Resp Reports no additional complaints GI Reports no additional complaints Reports as per HPI Musc Reports no additional complaints Neuro Reports no additional complaints Psych Details: patient reports seeing a sleep psychotherapist to be able to help her with her insomnia Endo Reports no additional complaints Physical Exam Const General: cooperative, healthy appearing, comfortable, no acute distress, well developed, alert and awake Nutritional Appearance: overweight Orientation/consciousness: patient oriented x3 Limitations: no limitations HEENT Head: Yes normal to inspection, Yes normocephalic and Yes atraumatic Eyes General: appearance normal, both eyes and all related structures Neck Neck: Yes normal visual inspection and Yes trachea midline Resp Effort & Inspection: normal respiratory effort and able to speak in complete sentences Cardio Rate: regular rate GI Inspection: Yes normal to inspection General: Yes no CVA tenderness Back/Spine/Pelvis Back: no CVA tenderness Skin General skin exam: no rashes or lesions noted Neuro General: patient oriented x3 Extrem General: Yes normal to inspection Psych Appearance: grossly normal and well kempt Mental Status: mental status grossly normal Speech and movement: Normal speech and movement present Affect: normal affect Attitude: cooperative Thought process: Normal thought process present Thought content: Normal thought content present Insight: Good insight present (Psych) Judgement: Good judgement present (Psych) Results AMB Urinalysis, Automated UA Leukoctes 70 Neo/uL Last Edit by Erik Tracey on 04/20/23 09:12 UA Nitrite Negative Last Edit by Erik Tracey on 04/20/23 09:12 UA Urobilinogen 0.2 mg/dL Last Edit by Erik Tracey on 04/20/23 09:12 UA Protein 30 mg/dL Last Edit by Erik Tracey on 04/20/23 09:12 UA pH 6.0 Last Edit by Erik Tracey on 04/20/23 09:12 UA Blood 200 Lan/uL Last Edit by Erik Tracey on 04/20/23 09:12 UA Specific Mongo 1.015 Last Edit by Erik Tracey on 04/20/23 09:12 UA Ketone Positive Last Edit by Erik Tracey on 04/20/23 09:12 UA Bilirubin 0 mg/dL Last Edit by Erik Tracey on 04/20/23 09:12 UA Glucose 0 mg/dL Last Edit by Erik Tracey on 04/20/23 09:12 Results Reviewed Results Reviewed: Laboratory Last Values Urine pH (Auto) 6.0 04/20/23 09:11 Specific Mongo (Auto) 1.015 04/20/23 09:11 Urine Protein (Auto) 30 mg/dL 04/20/23 09:11 Glucose (UA)(Auto) 0 mg/dL 04/20/23 09:11 Urine Ketones (Auto) Positive 04/20/23 09:11 Urine Blood (Auto) 200 Lan/uL 04/20/23 09:11 Urine Nitrite (Auto) Negative 04/20/23 09:11 Urine Bilirubin (Auto) 0 mg/dL 04/20/23 09:11 Urine Urobilinogen (Auto) 0.2 mg/dL 04/20/23 09:11 Leukocyte Esterase (Auto) 70 Neo/uL 04/20/23 09:11 Assessment & Plan Assessment & Plan (1) Interstitial cystitis: Code(s): N30.10 - Interstitial cystitis (chronic) without hematuria (2) Lower urinary tract symptoms: Code(s): R39.9 - Unspecified symptoms and signs involving the genitourinary system Plan In office urinalysis results reviewed with the patient today; as noted above; patient reports to be on menses. Patient reports significant improvement in lower urinary tract symptoms with InterStim placement. She is happy with her current voiding parameters. Continue to avoid bladder triggers/irritants. Discussed, educated, and stressed the importance of continuing to drink plenty of water daily. Follow-up in 3 months with [facility]; or sooner with any issues, concerns, and or questions. Orders: Orders AMB Urinalysis Automated Today Z13.9 - Encounter for screening, unspecified Patient Instructions: The patient had an opportunity to ask questions regarding the treatment plan. All questions were answered. Physical exam, labs, and imaging were discussed and reviewed in detail. As well as risks, benefits, and discussion of treatment choices. No major barriers to understanding were identified. The patient expressed understanding and agreement with the above treatment plan. The patient was made aware they should contact our office by phone for worsening of their current condition, the appearance of new symptoms, or with any questions or concerns. Compliance is encouraged with any medications and follow up testing that is ordered. It is a privilege to be allowed the opportunity to participate in? your urological care.? Again, if you have any questions or concerns If you have any questions or concerns please do not hesitate to contact me. The office is [phone]. This note is constructed using voice recognition software. While every effort has been made to ensure accuracy fundraising specialist errors may have been included. Yours sincerely, GEE Morris Coding Level of Care Code Est Pt Level 3 (65899) Diagnoses Interstitial cystitis N30.10 Lower urinary tract symptoms R39.9
== END 2023-04-20 09:44 | disposition home or self-care (01) ==
LOC: HO.HUSH 08:47
PROVIDERS: PCP Nurse Practitioner; Visit Provider Nurse Practitioner Family
DX: N30.10 Interstitial cystitis (chronic) without hematuria (principal); R39.9 Unspecified symptoms and signs involving the genitourinary system
CPT/HCPCS: 99213

== ENCOUNTER → 2023-04-20 08:46 | Outpatient (BNVA) | payer MEDICARE, SELFPAY | PROVIDERS: PCP Nurse Practitioner; Visit Provider Nurse Practitioner Family | DX: N30.10 Interstitial cystitis (chronic) without hematuria (principal); R35.1 Nocturia; R39.15 Urgency of urination; R35.0 Frequency of micturition; Z79.2 Long term (current) use of antibiotics; Z79.899 Other long term (current) drug therapy | CPT/HCPCS: 81003; 99212 ==

== ENCOUNTER 2023-07-25 08:46 | Outpatient (AMB) | payer MEDICARE, SELFPAY ==
--- NOTE | 2023-07-25 08:48 | A.OFFVIS_ITS ---
Intake Visit Reasons: 3M [facility](Interstim) Allergies amoxicillin Allergy (Verified 04/20/23 21:56) Rash [facility] Medical History History of MRSA infection Migraine headache Interstitial cystitis Surgical History History of urologic surgery History of cystoscopy History of tonsillectomy Hx of endoscopy Social History Are you a primary health care coordinator to a significant other at home: No Do you presently have visiting nurse or other home services: No Patient Tobacco Use Status: Never used Tobacco Coding
--- NOTE | 2023-07-25 08:55 | MHC.OFFVIS ---
Intake Visit Reasons: 3M Follow Up (Interstim) Intake Note: Patient is Present for Follow Up Interstim Placed 12/2022 Urology Medication: None Antibiotic Allergies: Amoxicillin Blood Thinners: None Patient states that she has improved alot since she had Interstim placed Patient reports that she does not have as much frequency as before. states that she does sleep alot better, still does not fully sleep 8 hours but in comparison from how she felt previously prior to interstim she does states there is much improvement. Patient would like to discuss medication options that can aid her in getting herself prepared to go to sleep due to her body being used to how she was prior/ Allergies amoxicillin Allergy (Verified 04/20/23 21:56) Rash HPI Comments Details: Venita is a pleasant 28 year old female patient of Dr. Brandt. She has a past medical history of migraines and interstitial cystitis. She presents to the office today for follow-up. Of note, patient has underwent InterStim placement with Dr. Rodriguez on 12/26/22. In discussion with the patient today she reports significant improvement in lower urinary tract symptoms she had been experiencing. She reports nocturia has decreased to approximately 2 times per night whereas prior to InterStim placement she had been urinating anywhere between 5-12 times per night. She discusses having followed up with [facility] however continues on the same setting since surgical procedure. She continues to avoid bladder triggers/irritants. Surgical site appears very well healed. She does report having intermittent episodes of urinary urgency and frequency however does not find this bothersome. She reports these episodes are very infrequent. She reports having recently had a massage and had massage therapist avoid the area in which her InterStim is placed. In office urinalysis results reviewed with the patient today. She otherwise denies incontinence, nocturia, hematuria, dysuria, foul smelling urine, changes to urinary stream, flank pain, fever, and or chills. She is happy with her current voiding parameters. Venita is a pleasant female. She is a patient of Dr. Brandt. She seen for the following urologic conditions - interstitial cystitis Overlap interstitial cystitis with significant esophageal reflux Happy with current response to InterStim Nocturia significantly decreased Understands diet triggers Willing to try famotidine Interstitial cystitis Ongoing since 22 years old Primary symptoms constant bladder pressure with urge No impact on stream Cystoscopy 10/28 small volume with feeling of pressure - hydrodistention - histologic features consistent with interstitial cystitis Prior treatments - pelvic floor physical therapy, oxybutynin and fesoterdine, and low dose antibiotics with minimal effect, bladder botox 06/28 with minimal improvement. Gabapentin, Amitriptyline, and hydroxyzine. InterStim placement 12/29 good response PFSH Medical History History of MRSA infection Migraine headache Interstitial cystitis Surgical History History of urologic surgery History of cystoscopy History of tonsillectomy Hx of endoscopy Social History Are you a primary career information specialist to a significant other at home: No Do you presently have visiting nurse or other home services: No Patient Tobacco Use Status: Never used Tobacco Review of Systems Const Denies chills and Denies fever(s) Card Reports no additional complaints and Denies syncope Resp Denies cough GI Denies abdominal pain and Denies heartburn Reports as per HPI and Denies change in libido Neuro Denies syncope Psych Denies change in libido Endo Denies change in libido Physical Exam Const General: cooperative, healthy appearing, comfortable and no acute distress Orientation/consciousness: patient oriented x3 HEENT Face and sinus: Yes normal facial exam Mouth: moist mucous membranes Neck Neck: Yes normal visual inspection, Yes full ROM and Yes trachea midline Chest Chest palpation & inspection: normal inspection of the chest Resp Effort & Inspection: normal respiratory effort, able to speak in complete sentences and no respiratory distress GI Inspection: Yes normal to inspection Back/Spine/Pelvis Cervical Spine: normal cervical lordosis Thoracic/Lumbar Spine: thoracic and lumbar spine normal to inspection Skin General skin exam: no rashes or lesions noted Neuro General: patient oriented x3, gait normal, tone normal and moves all extremities Extrem General: Yes normal to inspection and Yes capillary refill normal Assessment & Plan Assessment & Plan (1) Esophageal reflux: Code(s): K21.9 - Gastro-esophageal reflux disease without esophagitis Category: Medical (2) Interstitial cystitis: Code(s): N30.10 - Interstitial cystitis (chronic) without hematuria Category: Medical Plan Trial for monitoring Follow-up nurse-practitioner Medications: New famotidine 40 mg PO Q12H 30 days 60 tabs 2RF N30.10 - Interstitial cystitis (chronic) without hematuria Patient Instructions: Imaging studies, laboratory and physical exam results were discussed and reviewed in detail. No major barriers to patient understanding were identified. An opportunity to ask questions regarding the treatment plan was provided. All questions were answered. The patient expressed understanding and agreement with the above treatment plan. The patient is aware they should contact our office by phone for worsening of their current condition or the appearance of new urologic symptoms. Compliance is encouraged with any medications and followup testing that is ordered. It is a privilege to participate in the urologic care of your patient. If you have any questions or concerns regarding treatment for the above conditions, or other urologic issues, please do not hesitate to contact me. The office telephone contact is [phone]. This note is constructed using voice recognition software. While every effort has been made to ensure accuracy coffee maker errors may have been included. Yours sincerely, Dr Bienvenido Rodriguez MD, [facility] - Urology Providers of Expert, Compassionate Care for the Genitourinary System Coding Level of Care Code Est Pt Level 4 (22344) Diagnoses Esophageal reflux K21.9 Interstitial cystitis N30.10
== END 2023-07-25 09:18 | disposition home or self-care (01) ==
PROVIDERS: PCP Nurse Practitioner; Referring Provider Nurse Practitioner; Visit Provider Urology
DX: K21.9 Gastro-esophageal reflux disease without esophagitis (principal); N30.10 Interstitial cystitis (chronic) without hematuria
CPT/HCPCS: 99213

== ENCOUNTER → 2023-07-25 08:46 | Outpatient (BNVA) | payer MEDICARE, SELFPAY | PROVIDERS: PCP Nurse Practitioner; Visit Provider Urology | DX: N30.10 Interstitial cystitis (chronic) without hematuria (principal); K21.9 Gastro-esophageal reflux disease without esophagitis | CPT/HCPCS: 99212 ==

== ENCOUNTER → 2023-10-25 08:25 | Outpatient (BNVA) | payer MEDICARE, SELFPAY | PROVIDERS: PCP Nurse Practitioner; Visit Provider Nurse Practitioner Family | DX: N30.10 Interstitial cystitis (chronic) without hematuria (principal); R33.9 Retention of urine, unspecified | CPT/HCPCS: 51798; 81003; 99212 ==

== ENCOUNTER 2023-10-25 08:26 | Outpatient (AMB) | payer MEDICARE, SELFPAY ==
--- NOTE | 2023-10-25 08:35 | A.OFFVIS_ITS ---
Intake Visit Reasons: 3m follow up Intake Note: Patient Presents today for Follow Up on: interstitial cystitis with Interstim Placed 12/2022 Urology Medication: None Antibiotic Allergies: Amoxicillin Blood Thinners: None Heat Treater Head Required: No Accompanied by: Self / Same As Patient Allergies amoxicillin Allergy (Verified 10/25/23 09:29) Rash Medication List - Last Reconciled 10/25/23 by GEE Morris famotidine 40 mg PO Q12H 30 days gabapentin 300 mg PO BEDTIME PRN sumatriptan succinate 50 mg PO NEEDED HPI Comments Details: Venita is a pleasant 28 year old female patient of Dr. Brandt. She has a past medical history of migraines and interstitial cystitis. She presents to the office today for follow-up. Of note, patient has underwent InterStim placement with Dr. Rodriguez on 12/26/22. In discussion with the patient today she reports significant improvement in lower urinary tract symptoms she had been experiencing. She reports nocturia has decreased to approximately 2 times per night whereas prior to InterStim placement she had been urinating anywhere between 5-12 times per night. She continues to attempt to avoid bladder triggers/irritants however, does no urinary urgency and frequency when she does indulge in bladder triggers and irritants such as tomato based products and chocolate. She does report having intermittent episodes of urinary urgency and frequency however does not find this bothersome. In office urinalysis results reviewed with the patient today. PVR 0mls. She otherwise denies incontinence, nocturia, hematuria, dysuria, foul smelling urine, changes to urinary stream, flank pain, fever, and or chills. She is happy with her current voiding parameters. She discusses going to the [facility] in his looking forward to doing so with her friends she also discusses potentially moving to [place] in the near future she otherwise offers no other issues or concerns at this time. Interstitial cystitis Ongoing since 22 years old Primary symptoms constant bladder pressure with urge No impact on stream Cystoscopy 10/28 small volume with feeling of pressure - hydrodistention - histologic features consistent with interstitial cystitis Prior treatments - pelvic floor physical therapy, oxybutynin and fesoterdine, and low dose antibiotics with minimal effect, bladder botox 06/28 with minimal improvement. Gabapentin, Amitriptyline, and hydroxyzine. InterStim placement 12/29 good response PFSH Medical History History of MRSA infection Migraine headache Interstitial cystitis Surgical History History of urologic surgery History of cystoscopy History of tonsillectomy Hx of endoscopy Social History Are you a primary health care social worker to a significant other at home: No Do you presently have visiting nurse or other home services: No Patient Tobacco Use Status: Never used Tobacco Review of Systems Const All systems reviewed & are unremarkable except as noted in HPI and below Reports as per HPI Eyes Reports no additional complaints ENT Reports no additional complaints Card Reports no additional complaints Resp Reports no additional complaints GI Reports no additional complaints Reports as per HPI Musc Reports no additional complaints Neuro Reports no additional complaints Psych Details: patient reports seeing a sleep psychotherapist to be able to help her with her insomnia Endo Reports no additional complaints Physical Exam Const General: cooperative, healthy appearing, comfortable, no acute distress, well developed, alert and awake Nutritional Appearance: overweight Orientation/consciousness: patient oriented x3 Limitations: no limitations HEENT Head: Yes normal to inspection, Yes normocephalic and Yes atraumatic Eyes General: appearance normal, both eyes and all related structures Neck Neck: Yes normal visual inspection and Yes trachea midline Resp Effort & Inspection: normal respiratory effort and able to speak in complete sentences Cardio Rate: regular rate GI Inspection: Yes normal to inspection General: Yes no CVA tenderness Back/Spine/Pelvis Back: no CVA tenderness Skin General skin exam: no rashes or lesions noted Neuro General: patient oriented x3 Extrem General: Yes normal to inspection Psych Appearance: grossly normal and well kempt Mental Status: mental status grossly normal Speech and movement: Normal speech and movement present Affect: normal affect Attitude: cooperative Thought process: Normal thought process present Thought content: Normal thought content present Insight: Good insight present (Psych) Judgement: Good judgement present (Psych) Office Procedures Post Void Residual Post Residual Void Post Void Residual (PVR): 0 58577-[id number] Void Residual by ultrasound Results AMB Urinalysis, Automated UA Leukoctes 0 Neo/uL Last Edit by Erik Tracey on 10/25/23 09:09 UA Nitrite Last Edit by Erik Tracey on 10/25/23 09:09 UA Urobilinogen 0.2 mg/dL Last Edit by Erik Tracey on 10/25/23 09:09 UA Protein 0 mg/dL Last Edit by Erik Tracey on 10/25/23 09:09 UA pH 6.0 Last Edit by Erik Tracey on 10/25/23 09:09 UA Blood 0 Lan/uL Last Edit by Erik Tracey on 10/25/23 09:09 UA Specific [place] 1.025 Last Edit by Erik Tracey on 10/25/23 09:09 UA Ketone Negative Last Edit by Erik Tracey on 10/25/23 09:09 UA Bilirubin 0 mg/dL Last Edit by Erik Tracey on 10/25/23 09:09 UA Glucose 0 mg/dL Last Edit by [employer] Tracey on 10/25/23 09:09 Results Reviewed Results Reviewed: Laboratory Last Values Urine pH (Auto) 6.0 10/25/23 09:08 Specific [place] (Auto) 1.025 10/25/23 09:08 Urine Protein (Auto) 0 mg/dL 10/25/23 09:08 Glucose (UA)(Auto) 0 mg/dL 10/25/23 09:08 Urine Ketones (Auto) Negative 10/25/23 09:08 Urine Blood (Auto) 0 Lan/uL 10/25/23 09:08 Urine Bilirubin (Auto) 0 mg/dL 10/25/23 09:08 Urine Urobilinogen (Auto) 0.2 mg/dL 10/25/23 09:08 Leukocyte Esterase (Auto) 0 Neo/uL 10/25/23 09:08 Assessment & Plan Assessment & Plan (1) Interstitial cystitis: Code(s): N30.10 - Interstitial cystitis (chronic) without hematuria Category: Medical (2) Lower urinary tract symptoms: Code(s): R39.9 - Unspecified symptoms and signs involving the genitourinary system Category: Medical Plan In office urinalysis results reviewed with the patient today; as noted above. Patient reports significant improvement in lower urinary tract symptoms with InterStim placement. She is happy with her current voiding parameters. Continue to avoid bladder triggers/irritants. Discussed, educated, and stressed the importance of continuing to drink plenty of water daily. Follow-up in 3 months with PVR; or sooner with any issues, concerns, and or questions. Orders: Orders AMB Urinalysis Automated Today Z13.9 - Encounter for screening, unspecified AMB Post Void Residual by ultrasound Today R39.9 - Unspecified symptoms and signs involving the genitourinary system Patient Instructions: The patient had an opportunity to ask questions regarding the treatment plan. All questions were answered. Physical exam, labs, and imaging were discussed and reviewed in detail. As well as risks, benefits, and discussion of treatment choices. No major barriers to understanding were identified. The patient expressed understanding and agreement with the above treatment plan. The patient was made aware they should contact our office by phone for worsening of their current condition, the appearance of new symptoms, or with any questions or concerns. Compliance is encouraged with any medications and follow up testing that is ordered. It is a privilege to be allowed the opportunity to participate in? your urological care.? Again, if you have any questions or conc erns If you have any questions or concerns please do not hesitate to contact me. The office is [phone]. This note is constructed using voice recognition software. While every effort has been made to ensure accuracy specimen collector errors may have been included. Yours sincerely, GEE Morris Coding Level of Care Code Est Pt Level 3 (47399) Complex EM visit Add On G2211 Diagnoses Interstitial cystitis N30.10 Lower urinary tract symptoms R39.9 CPT Codes Post Residual Void - PVR CPT Code: 69847-Gtfv Void Residual by ultrasound ([id number])
== END 2023-10-25 09:19 | disposition home or self-care (01) ==
PROVIDERS: PCP Nurse Practitioner; Referring Provider Nurse Practitioner; Visit Provider Nurse Practitioner Family
DX: N30.10 Interstitial cystitis (chronic) without hematuria (principal); R39.9 Unspecified symptoms and signs involving the genitourinary system; Z13.9 Encounter for screening, unspecified
CPT/HCPCS: 99213; G2211

== ENCOUNTER → 2024-01-25 09:06 | Outpatient (BNVA) | payer MEDICAID, SELFPAY | PROVIDERS: PCP Nurse Practitioner; Visit Provider Urology | DX: N30.10 Interstitial cystitis (chronic) without hematuria (principal) | CPT/HCPCS: 51798; 81003; 99212 ==

== ENCOUNTER 2024-01-25 09:07 | Outpatient (AMB) | payer MEDICAID, SELFPAY ==
--- NOTE | 2024-01-25 09:09 | MHC.OFFVIS ---
Intake Visit Reasons: 3m/PVR Intake Note: Patient is present for 3M/PVR Urology Medication:NONE Antibiotic Allergy:AMOXICILLIN Blood Thinner:NONE Last PVR: Todays PVR:0ML'S Cat Driver Required: No Allergies amoxicillin Allergy (Verified 01/25/24 09:11) Rash HPI Comments Details: Venita is a pleasant female. She is a patient of Dr. Brandt. She seen for the following urologic conditions - interstitial cystitis Continued reasonable response with InterStim Nocturia well-controlled Is identified dietary triggers and tries to avoid these Failed using famotidine She could try using Tums to neutralize acids at the main meal Interstitial cystitis Ongoing since 22 years old Primary symptoms constant bladder pressure with urge No impact on stream Cystoscopy 10/28 small volume with feeling of pressure - hydrodistention - histologic features consistent with interstitial cystitis Prior treatments - pelvic floor physical therapy, oxybutynin and fesoterdine, and low dose antibiotics with minimal effect, bladder botox 06/28 with minimal improvement. Gabapentin, Amitriptyline, and hydroxyzine. InterStim placement 12/29 good response [facility] Medical History History of MRSA infection Migraine headache Interstitial cystitis Surgical History History of urologic surgery History of cystoscopy History of tonsillectomy Hx of endoscopy Social History Are you a primary rn wound care to a significant other at home: No Do you presently have visiting nurse or other home services: No Patient Tobacco Use Status: Never used Tobacco Review of Systems Const Denies chills and Denies fever(s) Card Reports no additional complaints and Denies syncope Resp Denies cough GI Denies abdominal pain and Denies heartburn Reports as per HPI and Denies change in libido Neuro Denies syncope Psych Denies change in libido Endo Denies change in libido Physical Exam Const General: cooperative, healthy appearing, comfortable and no acute distress Orientation/consciousness: patient oriented x3 HEENT Face and sinus: Yes normal facial exam Mouth: moist mucous membranes Neck Neck: Yes normal visual inspection, Yes full ROM and Yes trachea midline Chest Chest palpation & inspection: normal inspection of the chest Resp Effort & Inspection: normal respiratory effort, able to speak in complete sentences and no respiratory distress GI Inspection: Yes normal to inspection Back/Spine/Pelvis Cervical Spine: normal cervical lordosis Thoracic/Lumbar Spine: thoracic and lumbar spine normal to inspection Skin General skin exam: no rashes or lesions noted Neuro General: patient oriented x3, gait normal, tone normal and moves all extremities Extrem General: Yes normal to inspection and Yes capillary refill normal Office Procedures Post Void Residual Post Residual Void Post Void Residual (PVR): 0 [id number]-Kwqv Void Residual by ultrasound Results AMB Urinalysis, Automated UA Leukoctes 0 Neo/uL Last Edit by TARA Ray on 01/25/24 09:36 UA Nitrite Negative Last Edit by TARA Ray on 01/25/24 09:36 UA Urobilinogen 0.2 mg/dL Last Edit by TARA Ray on 01/25/24 09:36 UA Protein 0 mg/dL Last Edit by Deepthi Leos CCM on 01/25/24 09:36 UA pH 6.5 Last Edit by Deepthi Leos CCM on 01/25/24 09:36 UA Blood 0 Lna/uL Last Edit by Deepthi Leos CCM on 01/25/24 09:36 UA Specific [place] 1.015 Last Edit by TARA Ray on 01/25/24 09:36 UA Ketone Negative Last Edit by TARA Ray on 01/25/24 09:36 UA Bilirubin 0 mg/dL Last Edit by Deepthi Leos CCM on 01/25/24 09:36 UA Glucose 0 mg/dL Last Edit by Deepthi Leos [facility] on 01/25/24 09:36 Results Reviewed Results Reviewed: Laboratory Last Values Urine pH (Auto) 6.5 01/25/24 09:35 Specific [place] (Auto) 1.015 01/25/24 09:35 Urine Protein (Auto) 0 mg/dL 01/25/24 09:35 Glucose (UA)(Auto) 0 mg/dL 01/25/24 09:35 Urine Ketones (Auto) Negative 01/25/24 09:35 Urine Blood (Auto) 0 Lan/uL 01/25/24 09:35 Urine Nitrite (Auto) Negative 01/25/24 09:35 Urine Bilirubin (Auto) 0 mg/dL 01/25/24 09:35 Urine Urobilinogen (Auto) 0.2 mg/dL 01/25/24 09:35 Leukocyte Esterase (Auto) 0 Neo/uL 01/25/24 09:35 Assessment & Plan Assessment & Plan (1) Interstitial cystitis: Code(s): N30.10 - Interstitial cystitis (chronic) without hematuria Category: Medical Plan Six-month follow-up Orders: Orders AMB Urinalysis Automated Today Z13.9 - Encounter for screening, unspecified Patient Instructions: Imaging studies, laboratory and physical exam results were discussed and reviewed in detail. No major barriers to patient understanding were identified. An opportunity to ask questions regarding the treatment plan was provided. All questions were answered. The patient expressed understanding and agreement with the above treatment plan. The patient is aware they should contact our office by phone for worsening of their current condition or the appearance of new urologic symptoms. Compliance is encouraged with any medications and followup testing that is ordered. It is a privilege to participate in the urologic care of your patient. If you have any questions or concerns regarding treatment for the above conditions, or other urologic issues, please do not hesitate to contact me. The office telephone contact is [phone]. This note is constructed using voice recognition software. While every effort has been made to ensure accuracy rough patcher errors may have been included. Yours sincerely, Dr Bienvenido Rodriguez MD, [facility] - Urology Providers of Expert, Compassionate Care for the Genitourinary System Coding Level of Care Code Est Pt Level 3 (33718) Diagnoses Interstitial cystitis N30.10 CPT Codes Post Residual Void - PVR CPT Code: 62538-Mkbe Void Residual by ultrasound ([id number])
== END 2024-01-25 09:47 | disposition home or self-care (01) ==
PROVIDERS: PCP Nurse Practitioner; Visit Provider Urology
DX: Z13.9 Encounter for screening, unspecified (principal); N30.10 Interstitial cystitis (chronic) without hematuria
CPT/HCPCS: 99213

== ENCOUNTER 2024-05-10 08:57 | Outpatient (AMB) | payer MEDICAID, SELFPAY ==
--- NOTE | 2024-05-10 09:08 | MHC.OFFVIS ---
Intake Visit Reasons: Interrogate Interstim Intake Note: Patient is present for INTERROGATE INTERSTIM Urology Medication:NONE Antibiotic Allergy:AMOXICILLIN Blood Thinner:NONE Punch Machine Hand Required: No Allergies amoxicillin Allergy (Verified 05/10/24 09:09) Rash HPI Comments Details: Venita is a pleasant female. She is a patient of Dr. Brandt. She seen for the following urologic conditions - interstitial cystitis Continued reasonable response with InterStim Nocturia well-controlled Is identified dietary triggers and tries to avoid these Failed using famotidine She could try using Tums to neutralize acids at the main meal Interrogation of InterStim performed today Slight tweak on programto add 2nd lead Will add terazosin 1 mg as feeling difficulty urinating at night Interstitial cystitis Ongoing since 22 years old Primary symptoms constant bladder pressure with urge No impact on stream Cystoscopy 10/28 small volume with feeling of pressure - hydrodistention - histologic features consistent with interstitial cystitis Prior treatments - pelvic floor physical therapy, oxybutynin and fesoterdine, and low dose antibiotics with minimal effect, bladder botox 06/28 with minimal improvement. Gabapentin, Amitriptyline, and hydroxyzine. InterStim placement 12/29 good response [facility] Medical History History of MRSA infection Migraine headache Interstitial cystitis Surgical History History of urologic surgery History of cystoscopy History of tonsillectomy Hx of endoscopy Social History Are you a primary clinical manager home care to a significant other at home: No Do you presently have visiting nurse or other home services: No Patient Tobacco Use Status: Never used Tobacco Review of Systems Const Denies chills and Denies fever(s) Card Reports no additional complaints and Denies syncope Resp Denies cough GI Denies abdominal pain and Denies heartburn Reports as per HPI and Denies change in libido Neuro Denies syncope Psych Denies change in libido Endo Denies change in libido Physical Exam Const General: cooperative, healthy appearing, comfortable and no acute distress Orientation/consciousness: patient oriented x3 HEENT Face and sinus: Yes normal facial exam Mouth: moist mucous membranes Neck Neck: Yes normal visual inspection, Yes full ROM and Yes trachea midline Chest Chest palpation & inspection: normal inspection of the chest Resp Effort & Inspection: normal respiratory effort, able to speak in complete sentences and no respiratory distress GI Inspection: Yes normal to inspection Back/Spine/Pelvis Cervical Spine: normal cervical lordosis Thoracic/Lumbar Spine: thoracic and lumbar spine normal to inspection Skin General skin exam: no rashes or lesions noted Neuro General: patient oriented x3, gait normal, tone normal and moves all extremities Extrem General: Yes normal to inspection and Yes capillary refill normal Assessment & Plan Assessment & Plan (1) Interstitial cystitis: Code(s): N30.10 - Interstitial cystitis (chronic) without hematuria Category: Medical (2) Lower urinary tract symptoms: Code(s): R39.9 - Unspecified symptoms and signs involving the genitourinary system Category: Medical Plan Trial terazosin Medications: New terazosin 1 mg PO BEDTIME 30 days 30 caps 1RF R39.12 - Poor urinary stream, R39.9 - Unspecified symptoms and signs involving the genitourinary system Patient Instructions: This note is constructed using voice recognition software. While every effort has been made to ensure accuracy transcription manager errors may have been included. Imaging studies, laboratory and physical exam results were discussed and reviewed in detail. No major barriers to patient understanding were identified. An opportunity to ask questions regarding the treatment plan was provided. All questions were answered. The patient expressed understanding and agreement with the above treatment plan. The patient is aware they should contact our office by phone for worsening of their current condition or the appearance of new urologic symptoms. Compliance is encouraged with any medications and followup testing that is ordered. It is a privilege to participate in the urologic care of your patient. If you have any questions or concerns regarding treatment for the above conditions, or other urologic issues, please do not hesitate to contact me. The office telephone contact is [phone]. Sincerely, Dr Bienvenido Rodriguez MD, J[facility] - Urology Compassionate Specialist Care for the Genitourinary System Coding Level of Care Code Est Pt Level 4 (37155) Complex EM visit Add On G2211 Diagnoses Interstitial cystitis N30.10 Lower urinary tract symptoms R39.9
== END 2024-05-10 09:43 | disposition home or self-care (01) ==
LOC: HO.HUSH 08:57
PROVIDERS: PCP Nurse Practitioner; Visit Provider Urology
DX: N30.10 Interstitial cystitis (chronic) without hematuria (principal); R39.9 Unspecified symptoms and signs involving the genitourinary system
CPT/HCPCS: 99214; G2211

== ENCOUNTER → 2024-05-10 08:57 | Outpatient (BNVA) | payer MEDICAID, SELFPAY | PROVIDERS: PCP Nurse Practitioner; Visit Provider Urology | DX: N30.10 Interstitial cystitis (chronic) without hematuria (principal); R39.12 Poor urinary stream | CPT/HCPCS: 99212 ==

== ENCOUNTER 2024-07-24 08:27 | Outpatient (AMB) | payer OTHER, SELFPAY ==
--- NOTE | 2024-07-24 08:29 | A.OFFVIS_ITS ---
Intake Visit Reasons: 6m follow up Intake Note: Patient is present for INTERROGATE INTERSTIM Urology Medication:TERAZOSIN (stopped terazosin) Antibiotic Allergy:AMOXICILLIN Blood Thinner:NONE PVR: 350ml's Case Mgr Required: No Allergies amoxicillin Allergy (Verified 07/24/24 11:38) Rash Medication List - Last Reconciled 07/24/24 by Shelby Gomez [facility]- sumatriptan succinate 50 mg PO NEEDED terazosin 1 mg PO BEDTIME 30 days HPI Comments Details: Venita is a pleasant 29 year old female patient of Dr. Randolph. She has a past medical history of migraines and interstitial cystitis. She presents to the office today for follow-up. Of note, patient has underwent InterStim placement with Dr. Rodriguez on 12/26/22. In discussion with the patient today she reports feeling lower urinary tract symptoms continue to be present. She reports feeling most bothersome urinary issue is nocturia. She reports previously feeling symptoms had improved with InterStim however most recently continues to experience nocturia up to 8 times per night. She does report having changed the programming on her InterStim device with Whyteboard and has found this mildly helpful. In office urinalysis results were reviewed with the patient today. PVR 350 mL. During last office visit with Dr. Rodriguez recommendations were made for low-dose terazosin 1 mg at bedtime however she reports she has not started the medication. We discussed at length incomplete bladder emptying. We discussed causes and affects of incomplete bladder emptying. She also does report urinary urgency and frequency throughout the day however feels she manages this well independently. She discusses previously having followed in IC diet however most recently has not been. We did discussed at length potential causes of lower urinary tract symptoms patient is experiencing as well as further treatment options and risks and benefits of these treatment options. She discusses her recent travel to [facility]. She denies hematuria, dysuria, foul smelling urine, changes to urinary stream, flank pain, fever, and or chills. All questions were answered. She otherwise offers no other issues or concerns at this time. PREVIOUS OFFICE NOTE: Interstitial cystitis Ongoing since 22 years old Primary symptoms constant bladder pressure with urge No impact on stream Cystoscopy 10/28 small volume with feeling of pressure - hydrodistention - histologic features consistent with interstitial cystitis Prior treatments - pelvic floor physical therapy, oxybutynin and fesoterdine, and low dose antibiotics with minimal effect, bladder botox 06/28 with minimal improvement. Gabapentin, Amitriptyline, and hydroxyzine. InterStim placement 12/29 good response Interrogation of InterStim performed today Slight tweak on program two add 2nd lead [facility] Medical History History of MRSA infection Migraine headache Interstitial cystitis Surgical History History of urologic surgery History of cystoscopy History of tonsillectomy Hx of endoscopy Social History Are you a primary child day care provider to a significant other at home: No Do you presently have visiting nurse or other home services: No Patient Tobacco Use Status: Never used Tobacco Review of Systems Const All systems reviewed & are unremarkable except as noted in HPI and below Reports as per HPI Eyes Reports no additional complaints ENT Reports no additional complaints Card Reports no additional complaints Resp Reports no additional complaints GI Reports no additional complaints Reports as per HPI Musc Reports no additional complaints Neuro Reports no additional complaints Psych Details: patient reports seeing a sleep psychotherapist to be able to help her with her insomnia Endo Reports no additional complaints Physical Exam Const General: cooperative, healthy appearing, comfortable, no acute distress, well developed, alert and awake Nutritional Appearance: overweight Orientation/consciousness: patient oriented x3 Limitations: no limitations HEENT Head: Yes normal to inspection, Yes normocephalic and Yes atraumatic Eyes General: appearance normal, both eyes and all related structures Neck Neck: Yes normal visual inspection and Yes trachea midline Resp Effort & Inspection: normal respiratory effort and able to speak in complete sentences Cardio Rate: regular rate GI Inspection: Yes normal to inspection General: Yes no CVA tenderness Back/Spine/Pelvis Back: no CVA tenderness Skin General skin exam: no rashes or lesions noted Neuro General: patient oriented x3 Extrem General: Yes normal to inspection Psych Appearance: grossly normal and well kempt Mental Status: mental status grossly normal Speech and movement: Normal speech and movement present Affect: normal affect Attitude: cooperative Thought process: Normal thought process present Thought content: Normal thought content present Insight: Good insight present (Psych) Judgement: Good judgement present (Psych) Office Procedures Post Void Residual Post Residual Void Post Void Residual (PVR): 350 40748-Iend Void Residual by ultrasound Results AMB Urinalysis, Automated UA Leukoctes 0 Neo/uL Last Edit by Yancy Tripp, [place] on 07/24/24 08:54 UA Nitrite Negative Last Edit by Yancy Tripp, [place] on 07/24/24 08:54 UA Urobilinogen 0.2 mg/dL Last Edit by Yancy Tripp, [place] on 07/24/24 08:54 UA Protein 0 mg/dL Last Edit by Yancy [place], [place] on 07/24/24 08:54 UA pH 6.0 Last Edit by Yancy [place], [place] on 07/24/24 08:54 UA Blood 0 Lan/uL Last Edit by Yancy Tripp, [place] on 07/24/24 08:54 UA Specific [place] 1.025 Last Edit by Yancy Tripp, [place] on 07/24/24 08:54 UA Ketone Negative Last Edit by Yancy Tripp, [place] on 07/24/24 08:54 UA Bilirubin 0 mg/dL Last Edit by Yancy [place], [place] on 07/24/24 08:54 UA Glucose 0 mg/dL Last Edit by Yancy [place], [place] on 07/24/24 08:54 Results Reviewed Results Reviewed: Laboratory Last Values Urine pH (Auto) 6.0 07/24/24 08:35 Specific [place] (Auto) 1.025 07/24/24 08:35 Urine Protein (Auto) 0 mg/dL 07/24/24 08:35 Glucose (UA)(Auto) 0 mg/dL 07/24/24 08:35 Urine Ketones (Auto) Negative 07/24/24 08:35 Urine Blood (Auto) 0 Lan/uL 07/24/24 08:35 Urine Nitrite (Auto) Negative 07/24/24 08:35 Urine Bilirubin (Auto) 0 mg/dL 07/24/24 08:35 Urine Urobilinogen (Auto) 0.2 mg/dL 07/24/24 08:35 Leukocyte Esterase (Auto) 0 Neo/uL 07/24/24 08:35 Assessment & Plan Assessment & Plan (1) Interstitial cystitis: Code(s): N30.10 - Interstitial cystitis (chronic) without hematuria Category: Medical (2) Lower urinary tract symptoms: Code(s): R39.9 - Unspecified symptoms and signs involving the genitourinary system Category: Medical (3) Incomplete bladder emptying: Code(s): R33.9 - Retention of urine, unspecified Category: Medical Plan In office urinalysis results with the patient today; as noted above. PVR 350 mL. We discussed at length potential causes and affects of incomplete bladder emptying. Start terazosin 1 mg at bedtime as discussed. We discussed bladder triggers and irritants. We discussed attempting to double void to assist with incomplete bladder emptying. We also discussed potentially having trial of shutting off InterStim to reassess urinary symptoms. Follow-up with nursing in 1-2 weeks for PVR; or sooner with any issues, concerns, and or questions. Will discuss follow-up with provider at that time Orders: Orders AMB Post Void Residual by ultrasound Today R39.9 - Unspecified symptoms and signs involving the genitourinary system AMB Urinalysis Automated Today Z13.9 - Encounter for screening, unspecified Medications: Refilled terazosin 1 mg PO BEDTIME 30 caps 3RF 30 days R39.12 - Poor urinary stream, R39.9 - Unspecified symptoms and signs involving the genitourinary system Patient Instructions: The patient had an opportunity to ask questions regarding the treatment plan. All questions were answered. Physical exam, labs, and imaging were discussed and reviewed in detail. As well as risks, benefits, and discussion of treatment choices. No major barriers to understanding were identified. The patient expressed understanding and agreement with the above treatment plan. The patient was made aware they should contact our office by phone for worsening of their current condition, the appearance of new symptoms, or with any questions or concerns. Compliance is encouraged with any medications and follow up testing that is ordered. It is a privilege to be allowed the opportunity to participate in? your urological care.? Again, if you have any questions or concerns If you have any questions or concerns please do not hesitate to contact me. The office is [phone]. This note is constructed using voice recognition software. While every effort has been made to ensure accuracy circus laborer errors may have been included. Yours sincerely, GEE Morris Coding Level of Care Code Est Pt Level 4 (25464) Diagnoses Interstitial cystitis N30.10 Lower urinary tract symptoms R39.9 Incomplete bladder emptying R33.9 CPT Codes Post Residual Void - PVR CPT Code: 74363-Abvl Void Residual by ultrasound ([id number]) Time Spent (min) 30
== END 2024-07-24 09:25 | disposition home or self-care (01) ==
PROVIDERS: PCP Nurse Practitioner; Visit Provider Nurse Practitioner Family
DX: N30.10 Interstitial cystitis (chronic) without hematuria (principal); R39.9 Unspecified symptoms and signs involving the genitourinary system; R33.9 Retention of urine, unspecified; Z13.9 Encounter for screening, unspecified
CPT/HCPCS: 99214

== ENCOUNTER → 2024-07-24 08:27 | Outpatient (BNVA) | payer OTHER, SELFPAY | PROVIDERS: PCP Nurse Practitioner; Visit Provider Nurse Practitioner Family | DX: N30.10 Interstitial cystitis (chronic) without hematuria (principal) | CPT/HCPCS: 51798; 81003 ==

== ENCOUNTER → 2024-08-21 08:24 | Outpatient (BNVA) | payer OTHER, SELFPAY | PROVIDERS: PCP Nurse Practitioner; Visit Provider Nurse Practitioner Family | DX: N30.10 Interstitial cystitis (chronic) without hematuria (principal); R33.9 Retention of urine, unspecified | CPT/HCPCS: 51798 ==

== ENCOUNTER 2024-11-25 07:42 | Outpatient (AMB) | payer OTHER, SELFPAY ==
--- OUTSIDE RECORDS SUMMARY | 2024-11-25 07:48 | XMS_ITS | Encounter Summary ---
Author Organization [facility]erged With [facility] Address [address] [place] [phone] Phone Care Team Providers Care Fuel Conversion Technician Name Role Phone Unknown, Unknown Primary Care Provider Jenny Miller POSTULANT Primary Care Provider [phone] Encounter Details Date Type Department Care Team (Late st Contact Info) Description 06/03/2024 Procedure Pass [facility] [place] [address] [address] Social History Tobacco Use Types Packs/Day Years Used Date Smoking Tobacco: Never Assessed Education Answer Date Recorded Are you interested in more education? Not on ashwin e 01/18/2023 Are you concerned about learning? Not on file 01/18/2023 No 01/18/2023 No 01/18/2023 Digital Access Answer Date Recorded No 01/18/2023 No 01/18/2023 Reliable internet access at home? Not on file 01/18/2023 Device with a working camera? Not on file Comments Unknown Sex and Gender Information Value Date Recorded Sex Assigned at Female 06/05/2024 6:43 PM EDT Legal Sex Female 8:56 PM EDT Gender Identity Female 06/05/2024 6:43 PM EDT Sexual Orientation Straight 06/05/2024 6: 43 PM EDT documented as of this encounter Plan of Treatment Upcoming Encounters Date Type Department Care Team (Late st Contact Info) Description 12/09/2024 7:15 AM EST Appointment [facility], Ultrasound [address] [address] Hetal Huggins NP [address] [place] [address] 12/12/2024 2:15 PM EST Office Visit [facility] [address] [place] [address] Unknown, Unknown, Hetal Camilo NP [address] [place] [address] documented as of this encounter Visit Diagnoses Not on filedocumented in this encounter Care Teams Fuel Conversion Technician Relationship Specialty Start Date End Date Unknown, Unknown, PCP - General 01/17/23 08/12/24 Jenny Randolph NP [address] [place] [phone] [email or web address] PCP - General Nurse Practitioner 08/13/24 documented as of this encounter Additional Source Comments The information contained in this document represents components of the legal health record. It is not the complete legal health record.[facility]
--- OUTSIDE RECORDS SUMMARY | 2024-11-25 07:48 | XMS_ITS | Encounter Summary ---
Author Organization [facility] Address [address] [place] [id number] Phone Care Team Providers Care Window Systems Administrator Name Role Phone Unknown, Unknown Primary Care Provider Jenny Miller INSPECTOR PLATING Primary Care Provider [phone] Encounter Details Date Type Department Care Team (Latest Contact Info) Description 05/28/2024 Transcribe Orders [facility] [address] [address] Hetal Huggins NP 10 [place] [address] Need for hepatitis B screening test (Primary Dx); Bloating; Change in bowel habits Social History Tobacco Use Types Packs/Day Years [...] Info) Description 12/09/2024 7:15 AM EST Appointment [facility], Ultrasound - [address] [address] Hetal Huggins NP 10 [place] [address] 12/12/2024 2:15 PM EST Office Visit [facility] [address] [place] [address] Unknown, Unknown, Hetal Camilo NP 10 [place] [address] documented as of this encounter Results * Pancreatic Elastase, Stool (06/12/2024 10:09 AM EDT) Pancreatic Elastase, Feces >500 >200 (Normal) mcg/g [facility] Stool (Stool) 06/12/2024 10: 09 AM EDT 06/12/2024 10:11 AM EDT us Hetal Huggins INSPECTOR PLATING BODY FLUIDS AND STOOLS ORDERABLES Final Result Performing Organization Address City/[facility]/ZIP Co de Phone Number [facility] [address] [place] [address] * (ABNORMAL) Stool fat/fiber exam (06/12/2024 10:09 AM EDT) FATTY ACID NORMAL NORMAL [facility] Neutral Fat, stool INCREASED(A ) NORMAL [facility] Stool (Stool) 06/12/2024 10: 09 AM EDT 06/12/2024 10:11 AM EDT us Hetal Huggins INSPECTOR PLATING BODY FLUIDS AND STOOLS ORDERABLES Final Result Performing Organization Address City/[facility]/ZIP Co de Phone Number [address] [address] * H. pylori stool PCR with resistance prediction (06/12/2024 10:09 AM EDT) Specimen Source STOOL [facility] DPT OF LAB MED AND PAT+ Helicobacter pylori Result Not Detected Not Detected [facility] DPT OF LAB MED AND PAT+ Comment: (NOTE) ADDITIONAL INFORMATION This test was developed and its performance characteristics determined by [facility] in a manner consistent with CLIA requirements. This test has not been cleared or approved by the U.S. Food and Drug Administration. Clarithromycin Resistance Result Test component not applicable or not reported. [facility] DPT OF LAB MED AND PAT+ Stool (Stool) 06/12/2024 10: 09 AM EDT 06/12/2024 10:11 AM EDT Hetal Huggins NP BODY FLUIDS AND STOOLS ORDERABLES Final Result [facility] DPT OF LAB MED AND PAT+ [address] [place] [address] * (ABNORMAL) Calprotectin, stool (06/12/2024 10:09 AM EDT) STOOL CALPROTECTIN 145(H) mcg/g [facility] [facility] Comment: (NOTE) Reference Range: <50 Normal 50-120 Borderline >120 Elevated Calprotectin in Crohn's disease and ulcerative colitis can be five to several thousand times above the reference population (50 mcg/g or less). Levels are usually 50 mcg/g or less in healthy patients and with irritable bowel syndrome. Repeat testing in 4-6 weeks is suggested for borderline values. Stool (Stool) 06/12/2024 10: 09 AM EDT 06/12/2024 10:11 AM EDT Hetal Huggins NP BODY FLUIDS AND STOOLS ORDERABLES Final Result Performing Organization Address City/[facility]/ZIP Co de Phone Number [facility] [address] [place] [address], [facility] [phone] * Heterophile antibody (monospot) (05/28/2024 9:07 AM EDT) [facility] Heterophile Ab NON-REACTI VE NON-REACTI VE [facility] Blood (Blood) 05/28/2024 9:0 7 AM EDT 05/28/2024 9:28 AM EDT Hetal Huggins NP NON CULTURE NOHELIA ROBIOLOGY Final Result Performing Organization Address [facility] Co de Phone Number [facility] [address] [place] [address] * Cytomegalovirus (CMV) PCR, blood (05/28/2024 9:07 AM EDT) [facility] CMV DNA DETECT/QUANT Undetected Undetected IU/mL [facility] Comment: (NOTE) Result in log IU/mL is Undetected. ADDITIONAL INFORMATION The quantification range of this assay is 35 to 10,000,000 IU/mL (1.54 log to 7.00 log IU/mL). Testing was performed using the annette CMV test ([email or web address] Blood (Blood) 05/28/2024 9:0 7 AM EDT 05/28/2024 9:29 AM EDT Hetal Huggins NP NON CULTURE NOHELIA ROBIOLOGY Final Result Performing Organization Address [facility] Co de Phone Number [facility] [address] [address] [place] [address] * Leonard-Roper virus (EBV) PCR, blood (05/28/2024 9:07 AM EDT) [facility] EBV Blood, PCR Undetected Undetected IU/mL [facility] MED/PATH [facility] Comment: (NOTE) Result in log IU/mL is Undetected. ADDITIONAL INFORMATION The quantification range of this assay is 35 to 100,000,000 IU/mL (1.54 log to 8.00 log IU/mL). Testing was performed using the annette EBV test ([employer] Blood (Blood) 05/28/2024 9:0 7 AM EDT 05/28/2024 9:29 AM EDT Hetal Huggins NP NON CULTURE NOHELIA ROBIOLOGY Final Result Performing Organization Address City/[facility]/ZIP Co de Phone Number [facility] LAB MED/PATH [address] [place] [address] * PT-INR (05/28/2024 9:07 AM EDT) [facility] PT 12.0 10.2 - 12.9 sec [facility] INR 1.0 0.9 - 1.1 [facility] Comment:Therapeutic range fo r oral Vitamin K antagonists: 2.0-3.5 Blood 05/28/2024 9:07 AM EDT 05/28/2024 9:28 AM EDT Hetal Huggins NP LAB BLOOD ORDER RAJANI Final Result Performing Organization Address City/[facility]/ZIP Co de Phone Number [facility] [address] [place] [address] * Ferritin (05/28/2024 9:07 AM EDT) [facility] FERRITIN 33 13 - 150 ug/L [facility] Blood 05/28/2024 9:07 AM EDT 05/28/2024 9:28 AM EDT Hetal Huggins INSPECTOR PLATING LAB BLOOD ORDER RAJANI Final Result Performing Organization Address City/[facility]/ZIP Co de Phone Number [address] [address] * Iron and iron binding capacity (05/28/2024 9:07 AM EDT) IRON 68 30 - 160 ug/dL [facility] IRON BINDING CAPACITY 360 228 - 428 ug/dL [facility] TRANSFERRIN SATURAT. 19 15 - 50 % [facility] Blood 05/28/2024 9:07 AM EDT 05/28/2024 9:28 AM EDT Result [facility] Hetal Huggins INSPECTOR PLATING LAB BLOOD ORDER RAJANI Final Result Performing Organization Address [facility] Co de Phone Number [address] [address] * (ABNORMAL) Lipid panel (05/28/2024 9:07 AM EDT) HDL 68 mg/dL [facility] Comment: Interpretation <40 mg/dL: Low HDL cholesterol (major risk factor for CHD) Greater than or equal to 60 mg/dL: High HDL cholesterol ( negative risk factor for CHD) HDL - cholesterol is affected by a number of factors, e.g. smoking, excerise, hormones, sex and age. CHOLESTEROL 200 0 - 240 mg/dL [facility] TRIGLYCERIDES 171(H) 30 - 160 mg/dL [facility] LDL 98 50 - 129 mg/dL [facility] Comment: LDL levels in terms of risk for coronary heart disease: <100 mg/dL: Optimal 100-129 mg/dL: Near or above optimal 130-159 mg/dL: Borderline high 160-189 mg/dL: High >190 mg/dL: Very High CARDIAC RISK RATIO 2.9(L) 3.3 - 4.4 C [facility] Blood 05/28/2024 9:07 AM EDT 05/28/2024 9:28 AM EDT us Hetal Huggins NP LAB BLOOD ORDER RAJANI Final Result [address] [address] * Hepatitis C antibody, qualitative (05/28/2024 9:07 AM EDT) HCV NON-REACTIV E NON-REACTI VE [facility] Blood 05/28/2024 9:07 AM EDT 05/28/2024 9:28 AM EDT Hetal Huggins INSPECTOR PLATING LAB BLOOD ORDER RAJANI Final Result Performing Organization Address [facility]/ZIP Co de Phone Number [address] [address] * Hepatitis B surface antigen (05/28/2024 9:07 AM EDT) HBV SURFACE ANTIGEN NON-REACTI VE NON-REACTI VE [facility] Blood 05/28/2024 9:07 AM EDT 05/28/2024 9:28 AM EDT Hetal Huggins INSPECTOR PLATING LAB BLOOD ORDER RAJANI Final Result Performing Organization Address [facility]/ZIP Co de Phone Number [address] [address] * Hepatitis B surface antibody (05/28/2024 9:07 AM EDT) HBV SURFACE ANTIBODY Negative [facility] Comment: Unvaccinated: Negative Vaccinated: Positive Blood 05/28/2024 9:07 AM EDT 05/28/2024 9:28 AM EDT Hetal Huggins INSPECTOR PLATING LAB BLOOD ORDER RAJANI Final Result [address] [address] * Hepatitis B core antibody, IgM (05/28/2024 9:07 AM EDT) Pathologist [facility] HEP B CORE IGM AB Negative Negative [facility] Comment:IgM anti-HBc not det ected. Does not exclude the possibility of exposure to or infection with HBV. Blood 05/28/2024 9:07 AM EDT 05/28/2024 9:29 AM EDT Hetal Huggins NP LAB BLOOD ORDER RAJANI Final Result [address] [address] * (ABNORMAL) HEPATITIS A ANTIBODY, TOTAL (05/28/2024 9:07 AM EDT) [facility] HAV TOTAL AB Reactive(A ) NON-REACTI VE [facility] Blood 05/28/2024 9:07 AM EDT 05/28/2024 9:28 AM EDT Hetal Huggins NP LAB BLOOD ORDER RAJANI Final Result Performing Organization Address City/[facility]/ZIP Co de Phone Number [address] [address] * Lyme Screen with Reflex to Immunoblot, Blood (05/28/2024 9:07 AM EDT) [facility] Lyme AB IgG Negative Negative [facility] Lyme AB IgM Negative Negative [facility] Blood 05/28/2024 9:07 AM EDT 05/28/2024 9:28 AM EDT Hetal Huggins NP LAB BLOOD ORDER RAJANI Final Result Performing Organization Address City/[facility]/ZIP Co de Phone Number [address] [address] * (ABNORMAL) C-Reactive Protein (05/28/2024 9:07 AM EDT) C REACTIVE PROTEIN 8.2(H) 0.0 - 4.0 mg/L [facility] Blood 05/28/2024 9:07 AM EDT 05/28/2024 9:28 AM EDT Hetal Huggins NP LAB BLOOD ORDER RAJANI Final Result [address] [address] * (ABNORMAL) Comprehensive metabolic panel (05/28/2024 9:07 AM EDT) [facility] SODIUM 138 133 - 146 mmol/L [facility] POTASSIUM 4.0 3.3 - 5.1 mmol/L [facility] CHLORIDE 102 96 - 108 mmol/L [facility] CO2 27 21 - 35 mmol/L [facility] BUN 11 6 - 19 mg/dL [facility] CREATININE 0.70 0.5 - 1.5 mg/dL [facility] GLUCOSE 93 70 - 99 mg/dL [facility] ALBUMIN 4.3 3.9 - 4.8 g/dL [facility] TOTAL PROTEIN 8.0 6.5 - 8.0 g/dL [facility] CALCIUM 9.4 8.4 - 10.3 mg/dL [facility] ALKALINE PHOSPHATASE 113 39 - 117 U/L [facility] TOTAL BILIRUBIN 0.4 0.0 - 1.2 mg/dL [facility] AST 38(H) 0 - 37 U/L [facility] ALT 51(H) 0 - 40 U/L [facility] GLOBULIN 3.7 1 - 4.8 g/dL [facility] EGFR 119 >59 mL/min/1.7 3m2 [facility] Comment:Estimated glomerular filtration rate calculated using the CKD-EPI refit equation. ANION GAP 13 10 - 20 mmol/L [facility] Blood 05/28/2024 9:07 AM EDT 05/28/2024 9:28 AM EDT Hetal Calin Huggins INSPECTOR PLATING LAB BLOOD ORDER RAJANI Final Result [facility] [address] [place] [address] * Ceruloplasmin (05/28/2024 9:07 AM EDT) CERULOPLASMIN 42 20 - 60 mg/dL [facility] Blood 05/28/2024 9:07 AM EDT 05/28/2024 9:29 AM EDT us Hetal Smallkiewicz Huggins INSPECTOR PLATING LAB BLOOD ORDER RAJANI Final Result Performing Organization Address City/[facility]/ZIP Co de Phone Number [facility] [address] [place] [address] * CBC and differential (05/28/2024 9:07 AM EDT) WBC 8.70 4.00 - 11.00 K/uL [facility] RBC 4.61 4.00 - 5.20 M/uL [facility] HGB 12.6 12.0 - 16.0 g/dL [facility] HCT 39.1 36.0 - 46.0 % [facility] PLT 321 150 - 450 K/uL [facility] MCV 84.8 80.0 - 100.0 fL [facility] MCH 27.3 27.0 - 31.0 pg [facility] MCHC 32.2 32.0 - 36.0 g/dL [facility] RDW 13.2 11.5 - 14.5 % [facility] MPV 11.1 8.4 - 12.0 fL [facility] NRBC 0.00 0.00 /100 WBCs [facility] ABSOLUTE NRBC 0.00 0.00 K/uL [facility] DIFF METHOD Auto [facility] NEUTS 65.1 48.0 - 76.0 % [facility] LYMPHS 23.2 18.0 - 41.0 % [facility] MONOS 6.3 4.0 - 11.0 % [facility] EOS 3.8 0.0 - 5.0 % [facility] BASOS 0.7 0.0 - 1.5 % [facility] Granulocytes, immature (%) 0.9 0.0 - 0.9 % [facility] ABSOLUTE NEUTS 5.66 1.92 - 7.60 K/uL [facility] ABSOLUTE LYMPHS 2.02 0.72 - 4.10 K/uL [facility] ABSOLUTE MONOS 0.55 0.16 - 1.10 K/uL [facility] ABSOLUTE EOS 0.33 0.00 - 0.50 K/uL [facility] ABSOLUTE BASOS 0.06 0.00 - 0.15 K/uL [facility] Granulocytes, immature 0.08 0.00 - 0.09 K/uL [facility] Blood 05/28/2024 9:07 AM EDT 05/28/2024 9:28 AM EDT Hetal Huggins NP LAB BLOOD ORDER RAJANI Final Result Performing Organization Address City/[facility]/ZIP Co de Phone Number [address] [address] * Immunoglobulin A (05/28/2024 9:07 AM EDT) IgA 160 70 - 400 mg/dL [facility] Blood 05/28/2024 9:07 AM EDT 05/28/2024 9:28 AM EDT Hetal Huggins NP LAB BLOOD ORDER RAJANI Final Result [address] [address] * Tissue transglutaminase IgA (05/28/2024 9:07 AM EDT) TTG IGA ANTIBODY <1.2 <4.0 (Negative) U/mL [facility] [address] Blood 05/28/2024 9:07 AM EDT 05/28/2024 9:29 AM EDT Hetal Huggins INSPECTOR PLATING LAB BLOOD ORDER RAJANI Final Result [facility]PATH [address] [place] [address] * Smooth Muscle Antibody (05/28/2024 9:07 AM EDT) SMOOTH MUSCLE AB NEGATIVE AT 1:20 [facility] Comment: Performing Pathologist, Donnie Gaitan M.D., Ph.D. [id number] Normal: Negative at 1:20 Blood 05/28/2024 9:07 AM EDT 05/28/2024 9:29 AM EDT Hetal Huggins NP LAB BLOOD ORDER RAJANI Final Result Performing Organization Address [facility] Co de Phone Number [address] [address] * Antinuclear antibody (KETURAH) (05/28/2024 9:07 AM EDT) KETURAH SCREEN ON HEP 2 Negative Negative [facility] Blood 05/28/2024 9:07 AM EDT 05/28/2024 9:28 AM EDT Hetal Huggins INSPECTOR PLATING LAB BLOOD ORDER RAJANI Final Result Performing Organization Address [facility] Co de Phone Number [facility] [address] [place] [address] * Anti-Mitochondrial Antibody (AMA) (05/28/2024 9:07 AM EDT) MITOCHONDRIAL AB NEGATIVE AT 1:20 [facility] Comment: Performing Pathologist, Donnie Gaitan M.D., Ph.D. [id number] Normal: Negative at 1:20 Blood 05/28/2024 9:07 AM EDT 05/28/2024 9:29 AM EDT Hetal Huggins INSPECTOR PLATING LAB BLOOD ORDER RAJANI Final Result [place] [address] [place] [address] * Bwmqh-[id number] phenotyping (05/28/2024 9:07 AM EDT) ALPHA 1 ANTITRYPSIN 112 100 - 190 mg/dL [facility] Comment: (NOTE) ADDITIONAL INFORMATION Method: Nephelometry A1A PHENOTYPE MZ bands [facility] Comment: (NOTE) Heterozygous for M and Z isoforms. This phenotype may be associated with modestly reduced wvagh-[id number]-pjyfirvfawg concentrations. ADDITIONAL INFORMATION Method: Isoelectric Focusing, This assay identifies the phenotype of the circulating utpnj-1-kdviipupwsm (A1A) protein. If the patient is on replacement therapy or has been recently transfused, the phenotype will detect patient and replacement or transfused plasma A1A protein. This test also cannot detect a null allele which could be responsible for an A1A deficiency. Blood 05/28/2024 9:07 AM EDT 05/28/2024 9:29 AM EDT us Hetal Huggins NP LAB BLOOD ORDER RAJANI Final Result [facility] LAB MED/[facility] [address] [place] [address] documented in this encounter Visit Diagnoses Diagnosis Need for hepatitis B screening test- Primary Bloating Flatulence, eructation, and gas pain Change in bowel habits Other symptoms involving digestive system documented in this encounter Care Teams Window Systems Administrator Relationship Specialty Start Date End Date Unknown, Unknown, PCP - General 01/17/23 08/12/24 Jenny Randolph NP [address] [place] [address] [email or web address] PCP - General Nurse Practitioner 08/13/24 documented as of this encounter Additional Source Comments The information contained in this document represents components of the legal health record. It is not the complete legal health record.[facility]
--- OUTSIDE RECORDS SUMMARY | 2024-11-25 07:48 | XMS_ITS | Clinical Summary ---
Author Organization [facility] Address [address] [place] [address] [place] [address] Phone Care Team Providers Care Granulator Operator Name Role Phone Jenny Randolph NP Primary Care Provider [phone] Allergies Active Allergy Reactions Criticality Noted Date Comments Amoxicillin 08/13/2024 Medications cyclobenzaprine (FLEXERIL) 10 MG tablet Take by mouth 2 (two) times a day as needed. 07/11/2024 Active naproxen (NAPROSYN) 500 MG tablet Take by mouth 2 (two) times a day with meals. 07/11/2024 Active sumatriptan succ/naproxen sod (SUMATRIPTAN-NAP ROXEN ORAL) as needed. Active valacyclovir HCl (VALACYCLOVIR ORAL) as needed. 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 She has currently no pelvic pain, menstrual problems, defacatory problems. She follows a strict diet due to IBS and IC and has a bladder stim device in her back. Periods are regular and not painful. Currently she feels fine as long as she eats carefully. I review the images and show her both of the CT and pelvic US. As the cyst is simple and small I am not concerned for cancer or other concerning pathology nor do I think it relates to her symptoms of bladder issues (lifelong) or food sensititvies, bloating, etc. We discuss pelvic inclusion cyst versus paratubal cysts and that either way they can be left in place, may stay indefinitely. We discuss the option of checking a pelvic US at some time interval for reassurance. Social History Tobacco Use Types Packs/Day Years Used Date Smoking Tobacco: Never Passive Smoke Exposure: Past Smokeless Tobacco: Never Tobacco Cessation:Counseling Given: Not Answered Alcohol Use Standard Drinks/Week Comments Not Currently 0 (1 standard drink = 0.6 oz pur e alcohol) Education Answer Date Recorded Are you interested in more education? Not on ashwin e 01/18/2023 Are you concerned about learning? Not on file 01/18/2023 No 01/18/2023 No 01/18/2023 Digital Access Answer Date Recorded No 01/18/2023 No 01/18/2023 Reliable internet access at home? Not on file 01/18/2023 Device with a working camera? Not on file Comments No Sex and Gender Information Value Date Recorded Sex Assigned at Female 06/05/2024 6:43 PM EDT Legal Sex Female 8:56 PM EDT Gender Identity Female 06/05/2024 6:43 PM EDT Sexual Orientation Straight 06/05/2024 6: 43 PM EDT Last Filed Vital Signs Vital Sign Reading Time Taken Comments Blood Pressure 126/80 08/13/2024 8:27 AM EDT Pulse - - Temperature - - Respiratory Rate - - Oxygen Saturation - - Inhaled Oxygen Concentration - - Weight 138.3 kg (305 lb) 08/13/2024 8:27 AM EDT Height 170.2 cm (5' 7 ) 08/13/2024 8:27 AM EDT Body Mass Index 47.77 08/13/2024 8:27 AM EDT Plan of Treatment Upcoming Encounters Date Type Department Care Team (Late st Contact Info) Description 12/09/2024 7:15 AM EST Appointment [facility], [facility] [place] [facility] [address] [place] [address] Hetal Huggins NP [address] [place] [address] 12/12/2024 2:15 PM EST Office Visit [facility] [address] [place] [address] Unknown, Unknown, MD Huggins, Hetal Layton, LEVAR [address] [place] [address] Health Maintenance Due Date Last Done Comments DEPRESSION SCREENING 2005 HIV ONE-TIME SCREENING (18-65 YEARS) 2011 INFLUENZA VACCINE (#1) 2024 , 10/28/2018, 10/18/2017, Additional history exists COVID-19 VACCINE (2024- season) 2024 11/19/2020, 09/10/2020 Adult Td,Tdap Booster 09/22/2025 09/23/2015 , 02/06/2014, 04/22/2005 PAP SMEAR 01/17/2026 01/17/2023 HIB VACCINES Completed 04/08/1994, 03/1993, 1993, Additional history exists MENINGOCOCCAL VACCINES (ACWY) Completed 09/06/2011 HEPATITIS C SCREENING Completed 05/28/2024, 022 SMOKING STATUS SCREENING (Once After 26 Yrs) Completed 08/13/2024 MENINGOCOCCAL VACCINES (B) Aged Out N o longer eligible based on patient's age to complete this topic PNEUMOCOCCAL VACCINES (0-49 years) Aged Out No longer eligible based on patient's age to complete this topic Medical Devices Not on file Procedures Procedure Name Priority Date/Time Associated Diagnosis Comments HEPATITIS C ANTIBODY, QUALITATIVE Routine 05/28/2024 9:07 AM EDT Need for hepatitis B screening test Bloating Change in bowel habits PAP TEST Routine 01/17/2023 12:00 AM EST from Last 3 Months or Most Recently Relevant to Health Maintenance Results * Hepatitis C antibody, qualitative (05/28/2024 9:07 AM EDT) HCV NON-REACTIV E NON-REACTI VE [facility] Blood 05/28/2024 9:07 AM EDT 05/28/2024 9:28 AM EDT us Hetal Huggins BODY SHOP FLOORPERSON LAB BLOOD ORDER RAJANI Final Result [address] [address] * Pap Test (01/17/2023 12:00 AM EST) 01/17/2023 01/18/2023 9:2 8 AM EST Narrative SEE NARRATIVE - 01/20/2023 11:41 AM EST [address] [address] Blow Mold Operator: Christine Pearson MD BROADCAST CORRESPONDENT Cytology Report FINAL DIAGNOSIS A. PAP SMEAR (SUREPATH) CE: SPECIMEN ADEQUACY: Satisfactory for evaluation; transformation zone absent/insufficient. INTERPRETATION: NEGATIVE FOR INTRAEPITHELIAL LESION OR MALIGNANCY. Electronically Signed Out By: MUSA Denis(ASCP) The Pap test is a screening test primarily for squamous cancers and precursors and has associated false-negative and false-positive results. New technologies such as liquid-based preparations may decrease but will not eliminate all false-negative results. Regular sampling and follow-up of unexplained clinical signs and symptoms are recommended to minimize false negative results. PROCEDURES/ADDENDA HPV Testing (Requested) Ordered Date: 01/18/2023 A. PAP SMEAR (SUREPATH) CE: Human Papilloma Virus Test NEGATIVE for high-risk Human Papilloma Virus types 16, 18, 45 and the Other high risk probe set (Includes 31, 33, 35, 39, 51, 52, 56, 58, 59, 66, 68) Note: Testing performed by [employer] On[facility]arity HR-HPV analysis. Clinical correlation is advised. This HPV test was performed at [facility], [address] [place] [address]. This test has been FDA approved for [facility] cervical cytology specimens. The accuracy and precision of this test for all other specimen sources has been verified in the Cytopathology Laboratory of the [facility] and has not been cleared or approved by the U.S. Food and Drug Administration. Clinical correlation is advised. CLINICAL HISTORY Date of Last Menstrual Period: 12-26-2022 Other Clinical Conditions: Screening Pap SPECIMEN SOURCE A: PAP SMEAR (SUREPATH) CE Patient Name: VENITA YUN : 1995 (Age: 27) Sex: F Institution: [facility] Location: [facility] Date of Collection: 01/17/2023 Date of Reported: 01/20/2023 11:41 Results to: Jenny Randolph NP Jenny Randolph NP CYTOLOGY ORDERABLES Final Resu lt SEE NARRATIVE from Last 3 Months or Most Recently Relevant to Health Maintenance Insurance O POS EPO [facility]PO [facility] POS EPO [employer] HMO POS EPO Care Teams Granulator Operator Relationship Specialty Start Date End Date Jenny Randolph NP [address] [place] [id number] [email or web address] PCP - General Nurse Practitioner 08/13/24 Additional Source Comments The information contained in this document represents components of the legal health record. It is not the complete legal health record.[facility]
--- OUTSIDE RECORDS SUMMARY | 2024-11-25 07:48 | XMS_ITS | Encounter Summary ---
Author Organization [facility] Address [address] [place] [address] [place] [address] Phone Care Team Providers Care Director Data Processing Name Role Phone Unknown, Unknown Primary Care Provider Jenny Miller NP Primary Care Provider [phone] Reason for Referral * MRI/CAT Scan - Closed Specialty Diagnoses / Procedures Referred By Mandie daly Referred To Contact Radiology Diagnoses Bloating Change in bowel habits Abnormal laboratory test Procedures CT Abdomen/Pelvis Hetal Huggins NP [address] [place] [address] Phone: tel: fax: Referral ID Status Reason Start Date Expiration Date Visits Re quested Visits Authorized [id number] Closed 06/03/2024 06/03/2025 1 1 Encounter Details Date Type Department Care Team (Latest Contact Info) Description 06/03/2024 Transcribe Orders Virtual Department [address] [place] [address] Hetal Huggins NP [address] [place] [address] Bloating (Primary Dx); Change in bowel habits; Abnormal laboratory test Social History Tobacco Use Types Packs/Day Years [...] Info) Description 12/09/2024 7:15 AM EST Appointment [facility], [address] [address] Hetal Huggins NP [address] [place] [address] 12/12/2024 2:15 PM EST Office Visit [facility] [address] [place] [address] Unknown, Unknown, Hetal Camilo NP [address] [place] [address] documented as of this encounter Results * CT ABDOMEN/PELVIS WITH CONTRAST (06/12/2024 8:52 AM EDT) Anatomical Region Laterality Modality Abdomen, Pelvis Computed Tomogra phy 06/17/2024 4:37 PM EDT Impressions 06/17/2024 4:57 PM EDT 1. A cystic lesion near the midline posterior uterus measuring 4.4 cm is indeterminate, could represent a degenerating pedunculated uterine fibroid versus a right adnexal/paraovarian cystic lesion. Recommend further evaluation with pelvic ultrasound. 2. Prominent lymph nodes in the pelvis are nonspecific, could be reactive. RECOMMENDATION: - Further evaluation with pelvic ultrasound. Narrative 06/17/2024 4:[address] ABDOMEN/PELVIS WITH CONTRAST Referring clinician's provided indication for this examination in [facility]: Outside Radiology Order; bloating TECHNIQUE: Multidetector-row CT of the abdomen and pelvis was performed after administration of intravenous contrast using tailored dose modulation techniques. Images were reconstructed in the axial, coronal, and sagittal planes. COMPARISON: No priors available for comparison. FINDINGS: Lower Chest: 3 mm nodule in the right lower lobe (series 4 image 46), unlikely to be clinically significant but patient's age. Calcified lymph nodes in the partially visualized right lower perihilar region, likely sequela from prior granulomatous disease. No consolidation or pleural effusions. Liver: Normal. No focal lesions. Biliary: Normal. No biliary ductal dilatation. Spleen: Normal. No splenomegaly or focal lesions. Pancreas: Normal. No masses or ductal dilatation. Adrenal Glands: Normal. No nodules. Kidneys/Ureters: Subcentimeter hypodense right renal lesion is too small to characterize but likely benign such as a small cyst. No solid masses, stones, or hydronephrosis. Bowel: Normal appendix. No distention or wall thickening. Peritoneum/Retroperitoneum: Normal. No masses, pneumoperitoneum, or fluid. Lymph Nodes: Prominent lymph nodes in the pelvis are nonspecific, for example left external iliac from measuring 1.5 cm (series 4 image 106), and right external iliac lymph node measuring 1.9 x 0.9 cm (series 4 image 411). Pelvic Organs/Bladder: A cystic lesion near the midline posteriorly uterus measuring 4.4 x 3 cm (series 4 image 399), indeterminate is in the right CT from the uterus (pedunculated fibroid) versus arise from the right adnexa/paraovarian. Grossly normal appearance of the ovaries, however suboptimally evaluated on CT. Vessels: No abdominal aortic aneurysm. Bones/Soft Tissues: No destructive osseous lesions. Mild degenerative changes of the visualized spine. Neurostimulator device in the right buttock region with lead ending in the right fourth sacral foramina. Procedure Note Brandi Mc MD - 06/17/2024 CT ABDOMEN/PELVIS WITH CONTRAST Referring clinician's provided indication for this examination in [facility]:Outside Radiology Order; bloating TECHNIQUE: Multidetector-row CT of the abdomen and pelvis was performedafter administration of intravenous contrast using tailored dosemodulation techniques. Images were reconstructed in the axial, coronal,and sagittal planes. COMPARISON: No priors available for comparison. FINDINGS: Lower Chest: 3 mm nodule in the right lower lobe (series 4 image 46),unlikely to be clinically significant but patient's age. Calcified lymphnodes in the partially visualized right lower perihilar region, likelysequela from prior granulomatous disease. No consolidation or pleuraleffusions. Liver: Normal. No focal lesions. Biliary: Normal. No biliary ductal dilatation. Spleen: Normal. No splenomegaly or focal lesions. Pancreas: Normal. No masses or ductal dilatation. Adrenal Glands: Normal. No nodules. Kidneys/Ureters: Subcentimeter hypodense right renal lesion is too smallto characterize but likely benign such as a small cyst. No solid masses,stones, or hydronephrosis. Bowel: Normal appendix. No distention or wall thickening. Peritoneum/Retroperitoneum: Normal. No masses, pneumoperitoneum, orfluid. Lymph Nodes: Prominent lymph nodes in the pelvis are nonspecific, forexample left external iliac from measuring 1.5 cm (series 4 image 106),and right external iliac lymph node measuring 1.9 x 0.9 cm (series 4 [id number]). Pelvic Organs/Bladder: A cystic lesion near the midline posteriorly uterusmeasuring 4.4 x 3 cm (series 4 image 399), indeterminate is in the rightCT from the uterus (pedunculated fibroid) versus arise from the rightadnexa/paraovarian. Grossly normal appearance of the ovaries, however suboptimally evaluatedon CT. Vessels: No abdominal aortic aneurysm. Bones/Soft Tissues: No destructive osseous lesions. Mild degenerativechanges of the visualized spine. Neurostimulator device in the right buttock region with lead ending in theright fourth sacral foramina. IMPRESSION: 1. A cystic lesion near the midline posterior uterus measuring 4.4 cm isindeterminate, could represent a degenerating pedunculated uterine fibroidversus a right adnexal/paraovarian cystic lesion. Recommend furtherevaluation with pelvic ultrasound. 2. Prominent lymph nodes in the pelvis are nonspecific, could bereactive. RECOMMENDATION: - Further evaluation with pelvic ultrasound. Hetal Smalljaspreet Godoyg SHOT HOLE DRILLER IMG CT ABD/PELV IS Final Result documented in this encounter Visit Diagnoses Diagnosis Bloating- Primary Flatulence, eructation, and gas pain Change in bowel habits Other symptoms involving digestive system Abnormal laboratory test Other abnormal clinical finding Bloating Flatulence, eructation, and gas pain Change in bowel habits Other symptoms involving digestive system Abnormal laboratory test Other abnormal clinical finding documented in this encounter Care Teams Director Data Processing Relationship Specialty Start Date End Date Unknown, Unknown, MD PCP - General 01/17/23 08/12/24 Jenny Randolph NP [address] [place] [address] [email or web address] PCP - General Nurse Practitioner 08/13/24 documented as of this encounter Additional Source Comments The information contained in this document represents components of the legal health record. It is not the complete legal health record.[facility]
--- OUTSIDE RECORDS SUMMARY | 2024-11-25 07:48 | XMS_ITS | Encounter Summary ---
Author Organization [facility] Address [address] [place] [address] [place] [address] Phone Care Team Providers Care Autocad Operator Name Role Phone Unknown, Unknown Primary Care Provider Jenny Miller NP Primary Care Provider [phone] Reason for Referral * Outpatient Procedure - Authorized Specialty Diagnoses / Procedures Referred By Mandie daly Referred To Contact Radiology Diagnoses Bloating Change in bowel habits Procedures US Abdomen Complete Hetal Huggins NP [address] [place] [address] Phone: tel: fax: Referral ID Status Reason Start Date Expiration Date V isits Requested Visits Authorized [id number] Authorized 05/29/2024 05/29/2025 1 1 Encounter Details Date Type Department Care Team (Latest Contact Info) Description 05/29/2024 Transcribe Orders Virtual Department [address] [place] [address] Hetal Huggins NP [address] [place] [address] Bloating (Primary Dx); Change in bowel habits Social History Tobacco [...] Description 12/09/2024 7:15 AM EST Appointment [facility], [address] [address] Hetal Huggins NP [address] [place] [address] 12/12/2024 2:15 PM EST Office Visit [facility] [address] [place] [address] Unknown, Unknown, Hetal Camilo NP [address] [place] [address] Scheduled Orders Name Type Priority Associated Diagnoses Orde r Schedule US Abdomen Complete Imaging Routine Bloating Change in bowel habits Expected: 05/29/2024, Expires: 05/29/2025 documented as of this encounter Visit Diagnoses Diagnosis Bloating- Primary Flatulence, eructation, and gas pain Change in bowel habits Other symptoms involving digestive system documented in this encounter Care Teams Autocad Operator Relationship Specialty Start Date End Date Unknown, Unknown, PCP - General 01/17/23 08/12/24 Jenny Randolph NP [address] [place] [address] [email or web address] PCP - General Nurse Practitioner 08/13/24 documented as of this encounter Additional Source Comments The information contained in this document represents components of the legal health record. It is not the complete legal health record.[facility]
--- OUTSIDE RECORDS SUMMARY | 2024-11-25 07:48 | XMS_ITS | Encounter Summary ---
Author Organization [facility] Address [address] [place] [address] [place] [address] Phone Care Team Providers Care Resource Program Teacher Name Role Phone Unknown, Unknown Primary Care Provider Jenny Miller NP Primary Care Provider [phone] Reason for Referral * Hospital - Outpatient - Closed Specialty Diagnoses / Procedures Referred By Mandie t Referred To Contact Radiology Diagnoses Lesion of uterus Procedures US Pelvis Hetal Huggins NP [address] [place] [address] Phone: tel: fax: Referral ID Status Reason Start Date Expiration Date Visits Re quested Visits Authorized [id number] Closed 06/19/2024 06/19/2025 1 1 Encounter Details Date Type Department Care Team (Latest Contact Info) Description 06/19/2024 Transcribe Orders Virtual Department [address] [place] [address] Hetal Huggins NP [address] [place] [address] Lesion of uterus (Primary Dx) Social History Tobacco Use Types Packs/Day Years [...] Info) Description 12/09/2024 7:15 AM EST Appointment [address] [address] Hetal Huggins NP [address] [place] [address] 12/12/2024 2:15 PM EST Office Visit [facility] [address] [place] [address] Unknown, Unknown, Hetal Camilo NP [address] [place] [address] documented as of this encounter Results * US PELVIS TRANSABDOMINAL PLUS TRANSVAGINAL (07/05/2024 6:55 PM EDT) Anatomical Region Laterality Modality Pelvis, Uterus/Adnexa Ultrasound 07/05/2024 7:11 PM EDT Impressions 07/05/2024 7:17 PM EDT There is a rounded cystic lesion identified within the cul-de-sac measuring up to 4.1 cm. This could represent a paraovarian cyst or possible a peritoneal inclusion cyst. Consider further characterization with MRI or follow-up pelvic sonography. Non-thickened endometrium. No focal lesions. No discrete uterine myometrial lesions. Nydia 07/05/2024 7:17 PM EDT Procedure: US PELVIS TRANSABDOMINAL AND TRANSVAGINAL 07/05/2024 5:58 PM US Indications: Outside Radiology Order; cystic lesion found on uterus. Comparison: CT abdomen/pelvis dated June 12, 2024. Technique: Transabdominal sonography of the pelvis was performed. In addition, transvaginal imaging was performed to better evaluate the adnexae and ovaries. Color Doppler imaging was performed to assess vascularity. No 3-D images were acquired. Reported LMP: 30 years prior to exam. FINDINGS: Uterus: The uterus measures 7.5 x 3.0 x 4.6 cm acquired transvaginally. The myometrium is homogeneous. The uterus is anteverted in its positioning. No focal cervical masses. No focal myometrial findings. Endometrium: The endometrium measures 12 mm and appears homogeneous. No endometrial masses. No fluid is identified within the endometrial canal. Ovaries: The right ovary measures 2.3 x 2.3 x 2.1 cm transvaginally. No evidence of solid mass or cyst greater than 3 cm. Vascularity Right Ovary: There is normal color Doppler flow to the ovary. The left ovary measures 2.6 x 1.8 x 2.0 cm transvaginally. No evidence of solid mass or cyst greater than 3 cm. Vascularity Left Ovary: There is normal color Doppler flow to the ovary. Fluid: There is a small amount of free pelvic fluid. There is a rounded cystic lesion identified within the cul-de-sac measuring 2.8 x 2.5 x 4.1 cm, with noncomplex central appearance. No septation, or central vascularity is present. Procedure Note Nine, Edward Woody MD - 07/05/2024 Procedure: US PELVIS TRANSABDOMINAL AND TRANSVAGINAL 07/05/2024 5:58 PM US Indications: Outside Radiology Order; cystic lesion found on uterus. Comparison: CT abdomen/pelvis dated June 12, 2024. Technique: Transabdominal sonography of the pelvis was performed. Inaddition, transvaginal imaging was performed to better evaluate theadnexae and ovaries. Color Doppler imaging was performed to assessvascularity. No 3-D images were acquired. Reported LMP: 30 years prior to exam. FINDINGS: Uterus: The uterus measures 7.5 x 3.0 x 4.6 cm acquired transvaginally. Themyometrium is homogeneous. The uterus is anteverted in its positioning.No focal cervical masses. No focal myometrial findings. Endometrium: The endometrium measures 12 mm and appears homogeneous. No endometrialmasses. No fluid is identified within the endometrial canal. Ovaries: The right ovary measures 2.3 x 2.3 x 2.1 cm transvaginally. No evidence of solid mass or cyst greater than 3 cm. Vascularity Right Ovary: There is normal color Doppler flow to theovary. The left ovary measures 2.6 x 1.8 x 2.0 cm transvaginally. No evidence of solid mass or cyst greater than 3 cm. Vascularity Left Ovary: There is normal color Doppler flow to the ovary. Fluid: There is a small amount of free pelvic fluid. There is a rounded cysticlesion identified within the cul-de-sac measuring 2.8 x 2.5 x 4.1 cm, withnoncomplex central appearance. No septation, or central vascularity ispresent. IMPRESSION: There is a rounded cystic lesion identified within the [id number] up to 4.1 cm. This could represent a paraovarian cyst orpossible a peritoneal inclusion cyst. Consider further characterizationwith MRI or follow-up pelvic sonography. Non-thickened endometrium. No focal lesions. No discrete uterine myometrial lesions. us Hetal Huggins NP IMG US PELVIS Final Result documented in this encounter Visit Diagnoses Diagnosis Lesion of uterus- Primary Lesion of uterus documented in this encounter Care Teams Resource Program Teacher Relationship Specialty Start Date End Date Unknown, Unknown, PCP - General 01/17/23 08/12/24 Jenny Randolph NP [address] [place] [address] [email or web address] PCP - General Nurse Practitioner 08/13/24 documented as of this encounter Additional Source Comments The information contained in this document represents components of the legal health record. It is not the complete legal health record.[facility]
--- NOTE | 2024-11-25 07:58 | A.OFFVIS_ITS ---
Intake Visit Reasons: 3m follow up Intake Note: Patient is present for 3 mo follow up Urology Medication:Terazosin Antibiotic Allergy:AMOXICILLIN Blood Thinner:NONE PVR: 22ml's Engineering Manager Required: No Accompanied by: Self / Same As Patient Allergies amoxicillin Allergy (Verified 11/25/24 21:13) Rash Medication List - Last Reconciled 11/25/24 by ROLAND MorrisP- sumatriptan succinate 50 mg PO NEEDED terazosin 1 mg PO BEDTIME 30 days HPI Comments Details: Venita is a pleasant 29 year old female patient of Dr. Randolph. She has a past medical history of migraines and interstitial cystitis. She presents to the office today for follow-up of her ongoing lower urinary tract symptoms. Of note, patient has underwent InterStim placement with Dr. Rodriguez on 12/26/22. In discussion with the patient today she reports feeling lower urinary tract symptoms continue to be present. She reports feeling most bothersome urinary issue is nocturia. She reports previously feeling symptoms had improved with InterStim however most recently continues to experience nocturia up to 8 times per night. She also reports ongoing issues with bladder pressure. She does report having changed the programming on her InterStim device with [employer] and has found this mildly helpful. She also reports having completely shut off InterStim in his unsure if this was helpful. In office urinalysis results reviewed with the patient today. PVR 22ml's. She reports she had been compliant with terazosin 1 mg at bedtime however has since discontinued as she has not been having feeling of incomplete bladder emptying. We did discussed significant decrease in postvoid residual since her last office visit here. She also does report urinary urgency and frequency throughout the day however feels she manages this well independently. She discusses although she tries to follow interstitial cystitis diet she has not found this helpful in treatment ever lower urinary tract symptoms. We did discussed further treatment options of patient's lower urinary tract symptoms and risks and benefits of these treatment options. She denies hematuria, dysuria, foul smelling urine, changes to urinary stream, flank pain, fever, and or chills. All questions were answered. She otherwise offers no other issues or concerns at this time. PREVIOUS OFFICE NOTE: Interstitial cystitis Ongoing since 22 years old Primary symptoms constant bladder pressure with urge No impact on stream Cystoscopy 10/28 small volume with feeling of pressure - hydrodistention - histologic features consistent with interstitial cystitis Prior treatments - pelvic floor physical therapy, oxybutynin and fesoterdine, and low dose antibiotics with minimal effect, bladder botox 06/28 with minimal improvement. Gabapentin, Amitriptyline, and hydroxyzine. InterStim placement 12/29 good response Interrogation of InterStim performed today Slight tweak on program two add 2nd lead [facility] Medical History History of MRSA infection Migraine headache Interstitial cystitis Surgical History History of urologic surgery History of cystoscopy History of tonsillectomy Hx of endoscopy Social History Are you a primary manager critical care unit to a significant other at home: No Do you presently have visiting nurse or other home services: No Patient Tobacco Use Status: Never used Tobacco Review of Systems Const All systems reviewed & are unremarkable except as noted in HPI and below Reports as per HPI Eyes Reports no additional complaints ENT Reports no additional complaints Card Reports no additional complaints Resp Reports no additional complaints GI Reports no additional complaints Reports as per HPI Musc Reports no additional complaints Neuro Reports no additional complaints Psych Details: patient reports seeing a sleep psychotherapist to be able to help her with her insomnia Endo Reports no additional complaints Assessment & Plan Assessment & Plan (1) Interstitial cystitis: Code(s): N30.10 - Interstitial cystitis (chronic) without hematuria Category: Medical (2) Lower urinary tract symptoms: Code(s): R39.9 - Unspecified symptoms and signs involving the genitourinary system Category: Medical (3) Incomplete bladder emptying: Code(s): R33.9 - Retention of urine, unspecified Category: Medical Plan In office urinalysis results reviewed with the patient today; as noted above. PVR 22 mL. We did discussed further treatment options of lower urinary tract symptoms and risks and benefits of these treatment options. All questions were answered. We did review bladder triggers and irritants. Stop terazosin. Patient will call [employer] to assist with programming; information provided. We discussed importance of limiting fluids 2-3 hours prior to bed to decrease episodes of nocturia. Will arrange for bladder instillations. Follow-up with nursing as discussed Follow-up with provider in 3 months with PVR; or sooner with any issues, concerns, and or questions. Medications: Discontinued terazosin Discontinued Reason: Doctor's Order 1 mg PO BEDTIME 30 days 30 caps 3RF R39.12 - Poor urinary stream, R39.9 - Unspecified symptoms and signs involving the genitourinary system Patient Instructions: The patient had an opportunity to ask questions regarding the treatment plan. All questions were answered. Physical exam, labs, and imaging were discussed and reviewed in detail. As well as risks, benefits, and discussion of treatment choices. No major barriers to understanding were identified. The patient expressed understanding and agreement with the above treatment plan. The patient was made aware they should contact our office by phone for worsening of their current condition, the appearance of new symptoms, or with any questions or concerns. Compliance is encouraged with any medications and follow up testing that is ordered. It is a privilege to be allowed the opportunity to participate in? your urological care.? Again, if you have any questions or concerns If you have any questions or concerns please do not hesitate to contact me. The office is [phone]. This note is constructed using voice recognition software. While every effort has been made to ensure accuracy workers compensation claims examiner errors may have been included. Yours sincerely, GEE Morris Coding Level of Care Code Est Pt Level 3 (87244) Diagnoses Interstitial cystitis N30.10 Lower urinary tract symptoms R39.9 Incomplete bladder emptying R33.9
== END 2024-11-25 08:51 | disposition home or self-care (01) ==
LOC: HO.HUSH 07:43
PROVIDERS: PCP Nurse Practitioner; Visit Provider Nurse Practitioner Family
DX: N30.10 Interstitial cystitis (chronic) without hematuria (principal); R39.9 Unspecified symptoms and signs involving the genitourinary system; R33.9 Retention of urine, unspecified
CPT/HCPCS: 99213

== ENCOUNTER → 2024-12-02 08:14 | Outpatient (BNVA) | payer OTHER, SELFPAY | PROVIDERS: PCP Nurse Practitioner; Visit Provider Nurse Practitioner Family | DX: Z46.6 Encounter for fitting and adjustment of urinary device (principal); N30.10 Interstitial cystitis (chronic) without hematuria | CPT/HCPCS: 51700; 51701; J0665; J1643; J2003; J2919 ==

== ENCOUNTER → 2024-12-03 08:15 | Outpatient (BNVA) | payer OTHER, SELFPAY | PROVIDERS: PCP Nurse Practitioner; Visit Provider Nurse Practitioner Family | DX: N30.10 Interstitial cystitis (chronic) without hematuria (principal) | CPT/HCPCS: 51700; 51701; J0665; J1643; J2003; J2919 ==

== ENCOUNTER → 2024-12-04 08:15 | Outpatient (BNVA) | payer OTHER, SELFPAY | PROVIDERS: PCP Nurse Practitioner; Visit Provider Nurse Practitioner Family | DX: Z46.6 Encounter for fitting and adjustment of urinary device (principal); N30.10 Interstitial cystitis (chronic) without hematuria | CPT/HCPCS: 51700; 51701; J0665; J1643; J2003; J2919 ==

== ENCOUNTER → 2024-12-05 08:15 | Outpatient (BNVA) | payer OTHER, SELFPAY | PROVIDERS: PCP Nurse Practitioner; Visit Provider Nurse Practitioner Family | DX: N30.10 Interstitial cystitis (chronic) without hematuria (principal) | CPT/HCPCS: 51700; 51701; J0665; J1643; J2003; J2919 ==

== ENCOUNTER → 2024-12-06 08:16 | Outpatient (BNVA) | payer OTHER, SELFPAY | PROVIDERS: PCP Nurse Practitioner; Visit Provider Nurse Practitioner Family | DX: N30.10 Interstitial cystitis (chronic) without hematuria (principal) | CPT/HCPCS: 51700; 51701; J0665; J1643; J2003; J2919 ==

== ENCOUNTER → 2024-12-12 08:13 | Outpatient (BNVA) | payer OTHER, SELFPAY | PROVIDERS: PCP Nurse Practitioner; Visit Provider Nurse Practitioner Family | DX: N30.10 Interstitial cystitis (chronic) without hematuria (principal) | CPT/HCPCS: 51700; 51701; J0665; J1643; J2003; J2919 ==

== ENCOUNTER 2024-12-19 08:15 | Outpatient (AMB) | payer OTHER, SELFPAY ==
--- NOTE | 2024-12-19 08:17 | AM.OFFVISNUR ---
Intake Visit Reasons: IC instillation Allergies amoxicillin Allergy (Verified 11/25/24 21:13) Rash Office Procedures Bladder/Catheter Procedure Details: Patient presents to office for IC instillation #8. Patient reports some improvement in symptoms from IC instillations. Patient to make future IC appointments at checkout, patient will do the 5 weekly installations. 14fr straight cath used to instill: 10mls bupivicaine 0.50% 2mls heparin 10,000 units 10 mls lidocaine 2% lidocaine urojet 1ml solumedrol 40mg 81133-Gopfvekokv of Bladder 39140-Awbljy Bladder Catheter Procedure code (CPT) selection complete Assessment & Plan Assessment & Plan Orders: Orders AMB Bladder/Catheter Procedure Today N30.10 - Interstitial cystitis (chronic) without hematuria Coding CPT Codes Bladder/Catheter Procedure - CPT: 45358-Eyntcnnxjf of Bladder ([id number]) Bladder/Catheter Procedure - CPT: 77297-Tceosz Bladder Catheter ([id number])
--- OUTSIDE RECORDS SUMMARY | 2024-12-19 08:26 | XMS_ITS | Encounter Summary ---
Author Organization [facility] Address [address] [place] [address] [place] [phone] Phone Care Team Providers Care Grain Operator Name Role Phone Unknown, Unknown Primary Care Provider Jenny Miller NP Primary Care Provider [phone] Reason for Referral * MRI/CAT Scan - Closed Specialty Diagnoses / Procedures Referred By Mandie t Referred To Contact Radiology Diagnoses Bloating Change in bowel habits Abnormal laboratory test Procedures CT Abdomen/Pelvis Hetal Huggins NP Phone: tel: fax: Referral ID Status Reason Start Date Expiration Date Visits Re quested Visits Authorized [id number] Closed 06/03/2024 06/03/2025 1 1 Encounter Details Date Type Department Care Team (Latest Contact Info) Description 06/03/2024 Transcribe Orders Virtual Department [address] [place] [address] Hetal Huggins NP [address] [place] [address] Bloating (Primary Dx); Change in bowel habits; [...] Care Team (Late st Contact Info) Description 02/24/2025 7:15 AM EST Appointment [address] [address] Hetal Huggins, LEVAR [address] [place] [address] 03/31/2025 11:00 AM EST Office Visit [facility] [address] [place] [address] Shagufta Jesus PA-C [address] [address] [email or web address] documented as of this encounter Results * [...] clinician's provided indication for this examination in Epic: Outside Radiology Order; bloating TECHNIQUE: Multidetector-row CT [...] clinician's provided indication for this examination in [facility]:Outside Radiology Order; bloating TECHNIQUE: Multidetector-row CT of [...] measuring 1.9 x 0.9 cm (series 4 [id number]). Pelvic Organs/Bladder: A cystic lesion near the [...] RECOMMENDATION: - Further evaluation with pelvic ultrasound. us Hetal Calin Huggins BUSINESS ANALYST SALES [employer]PER[employer] IMG CT ABD/PELV IS Final Result documented [...] finding documented in this encounter Care Teams Grain Operator Relationship Specialty Start Date End Date Unknown, Unknown, MD PCP - General 01/17/23 08/12/24 Jenny Randolph NP [address] [place] [address] [email or web address] PCP - General Nurse Practitioner 08/13/24 documented as of this encounter Additional Source Comments The information contained in this document represents components of the legal health record. It is not the complete legal health record.[facility]
--- OUTSIDE RECORDS SUMMARY | 2024-12-19 08:26 | XMS_ITS | Encounter Summary ---
Author Organization [facility] Address [address] [place] [address] Phone Care Team Providers Care Breaker Layer Name Role Phone Unknown, Unknown Primary Care Provider Jenny Miller CHUCKING LATHE OPERATOR Primary Care Provider [phone] Encounter Details Date Type Department Care Team (Latest Contact Info) Description 05/28/2024 Transcribe Orders [facility] [address] [address] Hetal Huggins NP 10 [place] [address] Need for hepatitis B screening test (Primary [...] Info) Description 02/24/2025 7:15 AM EST Appointment [facility], Ultrasound - [facility] [address] [place] [address] Hetal Huggins NP 10 [place] [address] 03/31/2025 11:00 AM EST Office Visit [facility] 10 [place] [address] Shagufta Jesus PA-C [address] [address] [email or web address] documented as of this encounter Results * Pancreatic Elastase, Stool (06/12/2024 10:09 AM EDT) Pancreatic Elastase, Feces >500 >200 (Normal) mcg/g [facility] Stool (Stool) 06/12/2024 10: 09 AM EDT 06/12/2024 10:11 AM EDT us Hetal Huggins CHUCKING LATHE OPERATOR BODY FLUIDS AND STOOLS ORDERABLES Final Result Performing Organization Address [facility]/ZIP Co de Phone Number [facility] [address] [place] [address] * (ABNORMAL) Stool fat/fiber exam (06/12/2024 10:09 AM EDT) FATTY ACID NORMAL NORMAL [facility] Neutral Fat, stool INCREASED(A ) NORMAL [facility] Stool (Stool) 06/12/2024 10: 09 AM EDT 06/12/2024 10:11 AM EDT us Hetal Huggins CHUCKING LATHE OPERATOR BODY FLUIDS AND STOOLS ORDERABLES Final Result [facility] [address] [place] [address] * H. pylori stool PCR with resistance prediction (06/12/2024 10:09 AM EDT) Specimen Source STOOL [facility] DPT OF LAB MED AND PAT+ Helicobacter pylori Result Not Detected Not Detected [facility] DPT OF LAB MED AND PAT+ Comment: (NOTE) ADDITIONAL INFORMATION This test was developed and its performance characteristics determined by [facility] in a manner consistent with CLIA requirements. This test has not been cleared or approved by the U.S. Food and Drug Administration. Clarithromycin Resistance Result Test component not applicable or not reported. [facility] DPT OF LAB MED AND PAT+ Stool (Stool) 06/12/2024 10: 09 AM EDT 06/12/2024 10:11 AM EDT Hetal Huggins NP BODY FLUIDS AND STOOLS ORDERABLES Final Result [facility] DPT OF LAB MED AND PAT+ [address] [place] [address] * (ABNORMAL) Calprotectin, stool (06/12/2024 10:09 AM EDT) STOOL CALPROTECTIN 145(H) mcg/g [facility] [facility] Comment: (NOTE) Reference Range: <50 Normal 50-120 [...] 06/12/2024 10:11 AM EDT Hetal Huggins NP LAB BODY FLUIDS AND STOOL ORDERABLES Final Result Performing Organization Address City/[facility]/ZIP Co de Phone Number DEBRA WILKERSON/CLEMENT [facility] [address] [place] [address], [facility] [phone] * Heterophile antibody (monospot) (05/28/2024 9:07 AM EDT) [facility] Heterophile Ab NON-REACTI VE NON-REACTI VE [facility] Blood (Blood) 05/28/2024 9:0 7 AM EDT 05/28/2024 9:28 AM EDT Hetal Huggins NP LAB BLOOD BKR O RDERABLES Final Result Performing Organization Address [facility] Co de Phone Number [facility] [address] [place] [address] * Cytomegalovirus (CMV) PCR, blood (05/28/2024 9:07 AM EDT) [facility] CMV DNA DETECT/QUANT Undetected Undetected IU/mL [facility] Comment: (NOTE) Result in log IU/mL is Undetected. ADDITIONAL INFORMATION The quantification range of this assay is 35 to 10,000,000 IU/mL (1.54 log to 7.00 log IU/mL). Testing was performed using the annette CMV test ([employer] Blood (Blood) 05/28/2024 9:0 7 AM EDT 05/28/2024 9:29 AM EDT Hetal Huggins NP LAB BLOOD BKR O RDERABLES Final Result Performing Organization Address [facility] Co de Phone Number [facility] [address] [place] [address] * Leonard-Roper virus (EBV) PCR, blood (05/28/2024 9:07 AM EDT) EBV Blood, PCR Undetected Undetected IU/mL [facility] LAB MED/PATH [facility]PERIOR Comment: (NOTE) Result in log IU/mL is Undetected. ADDITIONAL INFORMATION The quantification range of this assay is 35 to 100,000,000 IU/mL (1.54 log to 8.00 log IU/mL). Testing was performed using the annette EBV test ([employer] Blood (Blood) 05/28/2024 9:0 7 AM EDT 05/28/2024 9:29 AM EDT Hetal Huggins CHUCKING LATHE OPERATOR LAB BLOOD BKR O RDERABLES Final Result Performing Organization Address City/[facility]/ZIP Co de Phone Number [facility] LAB MED/PATH SUPERIOR [address] [place] [address] * PT-INR (05/28/2024 9:07 AM EDT) Pathologist [facility] PT 12.0 10.2 - 12.9 sec [facility] INR 1.0 0.9 - 1.1 [facility] Comment:Therapeutic range fo r oral Vitamin K antagonists: 2.0-3.5 Blood 05/28/2024 9:07 AM EDT 05/28/2024 9:28 AM EDT us Hetal Huggins CHUCKING LATHE OPERATOR LAB BLOOD BKR O RDERABLES Final Result [facility] [address] [place] [address] * Ferritin (05/28/2024 9:07 AM EDT) Pathologist [facility] FERRITIN 33 13 - 150 ug/L [facility] Blood 05/28/2024 9:07 AM EDT 05/28/2024 9:28 AM EDT us Hetal Huggins CHUCKING LATHE OPERATOR LAB BLOOD BKR O RDERABLES Final Result Performing Organization Address City/[facility]/ZIP Co de Phone Number [address] [address] * Iron and iron binding capacity (05/28/2024 9:07 AM EDT) IRON 68 30 - 160 ug/dL [facility] IRON BINDING CAPACITY 360 228 - 428 ug/dL [facility] TRANSFERRIN SATURAT. 19 15 - 50 % [facility] Blood 05/28/2024 9:07 AM EDT 05/28/2024 9:28 AM EDT Hetal Huggins CHUCKING LATHE OPERATOR LAB BLOOD BKR O RDERABLES Final Result Performing Organization Address [facility] de Phone Number [address] [address] * (ABNORMAL) Lipid panel (05/28/2024 9:07 AM EDT) HDL 68 mg/dL [facility] Comment: Interpretation <40 mg/dL: Low HDL cholesterol (major risk factor for CHD) Greater than or equal to 60 mg/dL: High HDL cholesterol ( negative risk factor for CHD) HDL - cholesterol is affected by a number of factors, e.g. smoking, excerise, hormones, sex and age. CHOLESTEROL 200 0 - 240 mg/dL [facility] TRIGLYCERIDES 171(H) 30 - 160 mg/dL [facility] LDL 98 50 - 129 mg/dL [facility] Comment: LDL levels in terms of risk for coronary heart disease: <100 mg/dL: Optimal 100-129 mg/dL: Near or above optimal 130-159 mg/dL: Borderline high 160-189 mg/dL: High >190 mg/dL: Very High CARDIAC RISK RATIO 2.9(L) 3.3 - 4.4 C [facility] Blood 05/28/2024 9:07 AM EDT 05/28/2024 9:28 AM EDT us Hetal Huggins NP LAB BLOOD BKR O RDERABLES Final Result Performing Organization Address City/[facility]/ZIP Co de Phone Number [address] [address] * Hepatitis C antibody, qualitative (05/28/2024 9:07 AM EDT) HCV NON-REACTIV E NON-REACTI VE [facility] Blood 05/28/2024 9:07 AM EDT 05/28/2024 9:28 AM EDT Hetal Huggins CHUCKING LATHE OPERATOR LAB BLOOD BKR O RDERABLES Final Result Performing Organization Address [facility] Co de Phone Number [address] [address] * Hepatitis B surface antigen (05/28/2024 9:07 AM EDT) HBV SURFACE ANTIGEN NON-REACTI VE NON-REACTI VE [facility] Blood 05/28/2024 9:07 AM EDT 05/28/2024 9:28 AM EDT us Hetal Huggins NP LAB BLOOD BKR O RDERABLES Final Result Performing Organization Address [facility] Co de Phone Number [address] [address] * Hepatitis B surface antibody (05/28/2024 9:07 AM EDT) HBV SURFACE ANTIBODY Negative [facility] Comment: Unvaccinated: Negative Vaccinated: Positive Blood 05/28/2024 9:07 AM EDT 05/28/2024 9:28 AM EDT Hetal Huggins CHUCKING LATHE OPERATOR LAB BLOOD BKR O RDERABLES Final Result Performing Organization Address City/[facility]/ZIP Co de Phone Number [address] [address] * Hepatitis B core antibody, IgM (05/28/2024 9:07 AM EDT) HEP B CORE IGM AB Negative Negative [facility] Comment:IgM anti-HBc not det ected. Does not exclude the possibility of exposure to or infection with HBV. Blood 05/28/2024 9:07 AM EDT 05/28/2024 9:29 AM EDT Hetal Huggins CHUCKING LATHE OPERATOR LAB BLOOD BKR O RDERABLES Final Result Performing Organization Address [facility] Co de Phone Number [address] [address] * (ABNORMAL) HEPATITIS A ANTIBODY, TOTAL (05/28/2024 9:07 AM EDT) HAV TOTAL AB Reactive(A ) NON-REACTI VE [facility] Blood 05/28/2024 9:07 AM EDT 05/28/2024 9:28 AM EDT Hetal Huggins CHUCKING LATHE OPERATOR LAB BLOOD BKR O RDERABLES Final Result Performing Organization Address [facility] Co de Phone Number [address] [address] * Lyme Screen with Reflex to Immunoblot, Blood (05/28/2024 9:07 AM EDT) Lyme AB IgG Negative Negative [facility] Lyme AB IgM Negative Negative [facility] Blood 05/28/2024 9:07 AM EDT 05/28/2024 9:28 AM EDT Hetal Huggins CHUCKING LATHE OPERATOR LAB BLOOD BKR O RDERABLES Final Result Performing Organization Address City/[facility]/ZIP Co de Phone Number [address] [address] * (ABNORMAL) C-Reactive Protein (05/28/2024 9:07 AM EDT) C REACTIVE PROTEIN 8.2(H) 0.0 - 4.0 mg/L [facility] Blood 05/28/2024 9:07 AM EDT 05/28/2024 9:28 AM EDT us Hetal Huggins NP LAB BLOOD BKR O RDERABLES Final Result [facility] [address] [place] [address] * (ABNORMAL) Comprehensive metabolic panel (05/28/2024 9:07 AM EDT) SODIUM 138 133 - 146 mmol/L [facility] POTASSIUM 4.0 3.3 - 5.1 mmol/L [facility] CHLORIDE 102 96 - 108 mmol/L [facility] CO2 27 21 - 35 mmol/L [facility] BUN 11 6 - 19 mg/dL [facility] CREATININE 0.70 0.5 - 1.5 mg/dL [facility] GLUCOSE 93 70 - 99 mg/dL [facility] ALBUMIN 4.3 3.9 - 4.8 g/dL [facility] TOTAL PROTEIN 8.0 6.5 - 8.0 g/dL [facility] CALCIUM 9.4 8.4 - 10.3 mg/dL [facility] ALKALINE PHOSPHATASE 113 39 - 117 U/L [facility] TOTAL BILIRUBIN 0.4 0.0 - 1.2 mg/dL [facility] AST 38(H) 0 - 37 U/L [facility] ALT 51(H) 0 - 40 U/L [facility] GLOBULIN 3.7 1 - 4.8 g/dL [facility] EGFR 119 >59 mL/min/1.7 3m2 [facility] Comment:Estimated glomerular filtration rate calculated using the CKD-EPI refit equation. ANION GAP 13 10 - 20 mmol/L [facility] Blood 05/28/2024 9:07 AM EDT 05/28/2024 9:28 AM EDT Hetal Hgugins CHUCKING LATHE OPERATOR LAB BLOOD BKR O RDERABLES Final Result [facility] [address] [place] [address] * Ceruloplasmin (05/28/2024 9:07 AM EDT) CERULOPLASMIN 42 20 - 60 mg/dL [facility] Blood 05/28/2024 9:07 AM EDT 05/28/2024 9:29 AM EDT Hetal Calin Huggins CHUCKING LATHE OPERATOR LAB BLOOD ORDER RAJANI Final Result Performing Organization Address City/[facility]/ZIP Co de Phone Number [address] [address] * CBC and differential (05/28/2024 9:07 AM EDT) WBC 8.70 4.00 - 11.00 K/uL [facility] RBC 4.61 4.00 - 5.20 M/uL [facility] HGB 12.6 12.0 - 16.0 g/dL [facility] HCT 39.1 36.0 - 46.0 % [facility] PLT 321 150 - 450 K/uL [facility] MCV 84.8 80.0 - 100.0 fL [facility] MCH 27.3 27.0 - 31.0 pg [facility] MCHC 32.2 32.0 - 36.0 g/dL [facility] RDW 13.2 11.5 - 14.5 % [facility] MPV 11.1 8.4 - 12.0 fL [facility] NRBC 0.00 0.00 /100 WBCs [facility] ABSOLUTE NRBC 0.00 0.00 K/uL [facility] DIFF METHOD Auto [facility] NEUTS 65.1 48.0 - 76.0 % [facility] LYMPHS 23.2 18.0 - 41.0 % [facility] MONOS 6.3 4.0 - 11.0 % [facility] EOS 3.8 0.0 - 5.0 % [facility] BASOS 0.7 0.0 - 1.5 % [facility] Granulocytes, immature (%) 0.9 0.0 - 0.9 % [facility] ABSOLUTE NEUTS 5.66 1.92 - 7.60 K/uL [facility] ABSOLUTE LYMPHS 2.02 0.72 - 4.10 K/uL [facility] ABSOLUTE MONOS 0.55 0.16 - 1.10 K/uL [facility] ABSOLUTE EOS 0.33 0.00 - 0.50 K/uL [facility] ABSOLUTE BASOS 0.06 0.00 - 0.15 K/uL [facility] Granulocytes, immature 0.08 0.00 - 0.09 K/uL [facility] Blood 05/28/2024 9:07 AM EDT 05/28/2024 9:28 AM EDT [facility] LAB BLOOD BKR O RDERABLES Final Result [address] [address] * Immunoglobulin A (05/28/2024 9:07 AM EDT) Pathologist [facility] IgA 160 70 - 400 mg/dL [facility] Blood 05/28/2024 9:07 AM EDT 05/28/2024 9:28 AM EDT Hetal Calin Huggins CHUCKING LATHE OPERATOR LAB BLOOD BKR O RDERABLES Final Result [address] [address] * Tissue transglutaminase IgA (05/28/2024 9:07 AM EDT) TTG IGA ANTIBODY <1.2 <4.0 (Negative) U/mL [facility] [address] Blood 05/28/2024 9:07 AM EDT 05/28/2024 9:29 AM EDT Hetal Huggins CHUCKING LATHE OPERATOR LAB BLOOD BKR O RDERABLES Final Result [facility] LAB MED/PATH SUPERIOR [address] [place] [address] * Smooth Muscle Antibody (05/28/2024 9:07 AM EDT) SMOOTH MUSCLE AB NEGATIVE AT 1:20 [facility] Comment: Performing Pathologist, Donnie Gaitan M.D., Ph.D. [id number] Normal: Negative at 1:20 Blood 05/28/2024 9:07 AM EDT 05/28/2024 9:29 AM EDT Hetal Huggins LAB BLOOD ORDER RAJANI Final Result Performing Organization Address City/[facility]/ZIP Co de Phone Number [facility] [address] [place] [address] * Antinuclear antibody (KETURAH) (05/28/2024 9:07 AM EDT) KETURAH SCREEN ON HEP 2 Negative Negative [facility] Blood 05/28/2024 9:07 AM EDT 05/28/2024 9:28 AM EDT Hetal Huggins CHUCKING LATHE OPERATOR LAB BLOOD BKR O RDERABLES Final Result Performing Organization Address City/[facility] Co de Phone Number [facility] [address] [place] [address] * Anti-Mitochondrial Antibody (AMA) (05/28/2024 9:07 AM EDT) MITOCHONDRIAL AB NEGATIVE AT 1:20 [facility] Comment: Performing Pathologist, Donnie Gaitan M.D., Ph.D. [id number] Normal: Negative at 1:20 Blood 05/28/2024 9:07 AM EDT 05/28/2024 9:29 AM EDT Hetal Huggins NP LAB BLOOD ORDER RAJANI Final Result Performing Organization Address City/[facility]/ZIP Co de Phone Number [facility] [address] [place] [address] * Vavii-3-txfjjqxyzjx phenotyping (05/28/2024 9:07 AM EDT) ALPHA 1 ANTITRYPSIN 112 100 - 190 mg/dL [facility] LAB MED/[facility] Comment: (NOTE) ADDITIONAL INFORMATION Method: Nephelometry A1A PHENOTYPE MZ bands [facility] Comment: (NOTE) Heterozygous for M and Z isoforms. This phenotype may be associated with modestly reduced qlssj-3-wbjepyxqvkv concentrations. ADDITIONAL INFORMATION Method: Isoelectric Focusing, This assay identifies the phenotype of the circulating mzude-1-xhvcjskzfja (A1A) protein. If the patient is on replacement therapy or has been recently transfused, the phenotype will detect patient and replacement or transfused plasma A1A protein. This test also cannot detect a null allele which could be responsible for an A1A deficiency. Blood 05/28/2024 9:07 AM EDT 05/28/2024 9:29 AM EDT us Hetal Huggins NP LAB BLOOD ORDER RAJANI Final Result [facility] LAB MED/PATH SUPERIOR [address] [place] [address] documented in this encounter Visit Diagnoses Diagnosis Need for hepatitis B screening test- Primary Bloating Flatulence, eructation, and gas pain Change in bowel habits Other symptoms involving digestive system documented in this encounter Care Teams Breaker Layer Relationship Specialty Start Date End Date Unknown, Unknown, PCP - General 01/17/23 08/12/24 Jenny Randolph NP [address] [place] [address] PCP - General Nurse Practitioner 08/13/24 documented as of this encounter Additional Source Comments The information contained in this document represents components of the legal health record. It is not the complete legal health record.[facility]
--- OUTSIDE RECORDS SUMMARY | 2024-12-19 08:26 | XMS_ITS | Clinical Summary ---
Author Organization [facility] Address [address] [place] [address] [place] [address] Phone Care Team Providers Care Perianesthesia Nurse Name Role Phone Jenny Randolph NP Primary Care Provider [phone] Allergies Active Allergy Reactions Criticality Noted Date [...] simply cyst We reviewed her GI, , CAGE MANAGER history and her current and previous symptoms [...] US at some time interval for reassurance. Encounters Date Type Department Care Team Description 11/26/2024 Telephone [facility] [address] [place] [address] Lynne Estrada Reschedule Appointment from Last 3 Months Social History Tobacco Use Types Packs/Day Years [...] 6:43 PM EDT Sexual Orientation Straight 06/05/2024 6 :43 PM EDT Last Filed Vital Signs Vital [...] Info) Description 02/24/2025 7:15 AM EST Appointment [facility] [address] [place] [address] Hetal Huggins NP [address] [place] [address] 03/31/2025 11:00 AM EST Office Visit [facility] 10 [place] [address] Shagufta Jesus PA-C [address] [address] [email or web address] Health Maintenance Due Date Last Done Comments DEPRESSION SCREENING 2005 HIV ONE-TIME SCREENING (18-65 YEARS) 2011 INFLUENZA VACCINE (#1) 2024 , 10/28/2018, 10/18/2017, Additional history exists COVID-19 VACCINE (2024- season) 2024 11/19/2020, 09/10/2020 Adult Td,Tdap Booster 09/22/2025 09/23/2015 , 02/06/2014, 04/22/2005 PAP SMEAR 01/17/2026 01/17/2023 HIB VACCINES Completed 04/08/1994, 03/1993, 1993, Additional history exists IPV VACCINES Completed 01/09/1998, 08/1994, 1993, Additional history exists MENINGOCOCCAL VACCINES (ACWY) Completed 09/06/2011 HEPATITIS C SCREENING Completed 05/28/2024 , 05/28/2024, 05/28/2024, Additional history exists SMOKING STATUS SCREENING (Once After 26 Yrs) [...] AM EDT) HCV NON-REACTIV E NON-REACTI VE [facility] Blood 05/28/2024 9:07 AM EDT 05/28/2024 9:28 AM EDT us Hetal Huggins NP LAB BLOOD BKR O ANDREA Final Result [address] [address] * Pap Test (01/17/2023 12:00 AM EST) 01/17/2023 01/18/2023 9:2 8 AM EST Narrative SEE NARRATIVE - 01/20/2023 11:41 AM EST [address] [address] Apartment Maintenance Supervisor: Christine Pearson MD CAGE MANAGER Cytology Report FINAL DIAGNOSIS A. PAP SMEAR [...] 59, 66, 68) Note: Testing performed by [employer] HR-HPV analysis. Clinical correlation is advised. This HPV test was performed at [facility], [address] [place] [address]. This test has been FDA approved for [facility] cervical cytology specimens. The accuracy and precision of this test for all other specimen sources has been verified in the Cytopathology Laboratory of the [facility] and has not been cleared or approved by the U.S. Food and Drug Administration. Clinical correlation is advised. CLINICAL HISTORY Date of Last Menstrual Period: 12-26-2022 Other Clinical Conditions: Screening Pap SPECIMEN SOURCE A: PAP SMEAR ([facility]PATH) CE Patient Name: VENITA YUN : 1995 (Age: 27) Sex: F Institution: [facility] Location: [facility] Date of Collection: 01/17/2023 Date of Reported: 01/20/2023 11:41 Results to: Jenny Randolph NP Jenny Randolph NP CYTOLOGY ORDERABLES Final Resu lt SEE NARRATIVE from Last 3 Months or Most Recently Relevant to Health Maintenance Insurance [employer] O POS EPO AETNA HMO POS EPO AET[employer] HMO POS EPO A[employer] O POS EPO AETNA HMO POS EPO A[employer] HMO POS EPO Care Teams Perianesthesia Nurse Relationship Specialty Start Date End Date Jenny Randolph NP [address] [place] [phone] [email or web address] PCP - General Nurse Practitioner 08/13/24 Additional Source Comments The information contained in this document represents components of the legal health record. It is not the complete legal health record.[facility]
--- OUTSIDE RECORDS SUMMARY | 2024-12-19 08:26 | XMS_ITS | Encounter Summary ---
Author Organization [facility] Address [address] [place] [address] [place] [phone] Phone Care Team Providers Care Tuft Machine Operator Name Role Phone Unknown, Unknown Primary Care Provider Jenny Miller NP Primary Care Provider [phone] Reason for Referral * Outpatient Procedure - Authorized Specialty Diagnoses / Procedures Referred By Mandie daly Referred To Contact Radiology Diagnoses Bloating Change in bowel habits Procedures US Abdomen Complete Hetal Huggins NP Phone: tel: fax: Referral ID Status Reason Start Date Expiration Date V isits Requested Visits Authorized [id number] Authorized 05/29/2024 05/29/2025 1 1 Encounter Details Date Type Department Care Team (Latest Contact Info) Description 05/29/2024 Transcribe Orders Virtual Department [address] [place] [address] Hetal Huggins NP [address] [place] [address] Bloating (Primary Dx); Change in bowel habits [...] Info) Description 02/24/2025 7:15 AM EST Appointment [facility], [address] [address] Hetal Huggins NP [address] [place] [address] 03/31/2025 11:00 AM EST Office Visit [facility] 10 [place] [address] Shagufta Jesus PA-C [address] [address] [email or web address] Scheduled Orders Name Type Priority Associated Diagnoses Orde r Schedule US Abdomen Complete Imaging Routine Bloating Change in bowel habits Expected: 05/29/2024, Expires: 05/29/2025 documented as of this encounter Visit Diagnoses Diagnosis Bloating- Primary Flatulence, eructation, and gas pain Change in bowel habits Other symptoms involving digestive system documented in this encounter Care Teams Tuft Machine Operator Relationship Specialty Start Date End Date Unknown, Unknown, PCP - General 01/17/23 08/12/24 Jenny Randolph NP [address] [place] [phone] [email or web address] PCP - General Nurse Practitioner 08/13/24 documented as of this encounter Additional Source Comments The information contained in this document represents components of the legal health record. It is not the complete legal health record.[facility]
--- OUTSIDE RECORDS SUMMARY | 2024-12-19 08:26 | XMS_ITS | Encounter Summary ---
Author Organization [facility] Address [address] [place] [address] [place] [phone] Phone Care Team Providers Care Nursing Coordinator Name Role Phone Unknown, Unknown Primary Care Provider Jenny Miller NP Primary Care Provider [phone] Reason for Referral * Hospital - Outpatient - Closed Specialty Diagnoses / Procedures Referred By Contac t Referred To Contact Radiology Diagnoses Lesion of uterus Procedures US Pelvis Hetal Huggins NP Phone: tel: fax: Referral ID Status Reason Start Date Expiration Date Visits Re quested Visits Authorized [id number] Closed 06/19/2024 06/19/2025 1 1 Encounter Details Date Type Department Care Team (Latest Contact Info) Description 06/19/2024 Transcribe Orders Virtual Department [address] [place] [address] Hetal Huggins NP [address] [place] [address] Lesion of uterus (Primary Dx) Social History [...] Info) Description 02/24/2025 7:15 AM EST Appointment [address] [address] Hetal Huggins NP [address] [place] [address] 03/31/2025 11:00 AM EST Office Visit [facility] [address] [place] [address] Shagufta Jesus PA-C [address] [address] [email or web address] documented as of this encounter Results * [...] a rounded cystic lesion identified within the [id number] up to 4.1 cm. This could represent a paraovarian cyst orpossible a peritoneal inclusion cyst. Consider further characterizationwith MRI or follow-up pelvic sonography. Non-thickened endometrium. No focal lesions. No discrete uterine myometrial lesions. Hetal Huggins NP IMG US PELVIS Final Result documented in this encounter Visit Diagnoses Diagnosis Lesion of uterus- Primary Lesion of uterus documented in this encounter Care Teams Nursing Coordinator Relationship Specialty Start Date End Date Unknown, Unknown, PCP - General 01/17/23 08/12/24 Jenny Randolph NP [address] [place] [address] [email or web address] PCP - General Nurse Practitioner 08/13/24 documented as of this encounter Additional Source Comments The information contained in this document represents components of the legal health record. It is not the complete legal health record.[facility]
--- OUTSIDE RECORDS SUMMARY | 2024-12-19 08:26 | XMS_ITS | Encounter Summary ---
Author Organization [facility] Address [address] [place] [phone] Phone Care Team Providers Care Industrial Custodian Name Role Phone Unknown, Unknown Primary Care Provider Jenny Miller MEDICAL LOGISTICS SPECIALIST Primary Care Provider Encounter Details Date Type Department Care Team (Late st Contact Info) Description 06/03/2024 Procedure Pass [facility] [place] Scan [address] [address] Social History Tobacco Use Types Packs/Day Years [...] Info) Description 02/24/2025 7:15 AM EST Appointment [facility], Ultrasound [address] [address] Hetal Huggins NP [address] [place] [address] 03/31/2025 11:00 AM EST Office Visit [facility] [address] [place] [address] Shagufta Jesus PA-C [address] [address] [email or web address] documented as of this encounter Visit Diagnoses Not on filedocumented in this encounter Care Teams Industrial Custodian Relationship Specialty Start Date End Date Unknown, Unknown, PCP - General 01/17/23 08/12/24 Jenny Randolph NP [address] [place] [id number] [email or web address] PCP - General Nurse Practitioner 08/13/24 documented as of this encounter Additional Source Comments The information contained in this document represents components of the legal health record. It is not the complete legal health record.[facility]
== END 2024-12-19 08:26 | disposition home or self-care (01) ==
LOC: HO.HUSH 08:15
PROVIDERS: PCP Nurse Practitioner; Visit Provider Nurse Practitioner Family
DX: N30.10 Interstitial cystitis (chronic) without hematuria (principal)

== ENCOUNTER → 2024-12-19 08:15 | Outpatient (BNVA) | payer OTHER, SELFPAY | PROVIDERS: PCP Nurse Practitioner; Visit Provider Nurse Practitioner Family | DX: N30.10 Interstitial cystitis (chronic) without hematuria (principal) | CPT/HCPCS: 51700; 51701; J0665; J1643; J2003; J2919 ==